=== PATIENT | male | born 1940 | race Caucasian/White ===

== ENCOUNTER 2025-08-11 11:16 | Inpatient (IN) | payer MEDICARE, OTHER, SELFPAY ==
[2025-08-11] VITALS (29 sets, daily range): BP systolic 105–214; BP diastolic 47–121; PULSE 57–98; RESP 15–24; TEMP 35–37.3; O2SAT 91–100; BMI 36.5
--- NOTE | ~2025-08-11 | XR_ITS ---
CLINICAL HISTORY: Stroke Protocol 1 view chest x-ray Comparison: None provided Findings: Borderline to mild cardiomegaly. Bilateral costophrenic recess pleural effusions. Small subsegmental right basilar atelectasis/infiltrate. Questionable pulmonary vascular congestion. No acute fracture. IMPRESSION: Borderline to mild cardiomegaly. Bilateral costophrenic recess pleural effusions. Small subsegmental right basilar atelectasis/infiltrate. Correlate clinically for pulmonary vascular congestion. This document has been electronically signed by: Sowmya Stout MD on 08/11/2025 13:01:28
--- NOTE | ~2025-08-11 | CT_ITS ---
CLINICAL HISTORY: Stroke Protocol CT head without contrast Comparison: None provided Findings: No intra-axial mass, midline shift, hydrocephalus, or acute hemorrhage. Dcfy-lf-[id number] age-related cerebral hemispheric white matter ischemic changes. Postsurgical right orbital and maxillary sinus changes. Likely old right zygomatic arch fracture. Correlate clinically for focal tenderness. Bilateral cataract surgery. IMPRESSION: 1. No acute intracranial findings. This document has been electronically signed by: Sowmya Stout MD on 08/11/2025 11:53:31
--- NOTE | ~2025-08-11 | XR_ITS ---
CLINICAL HISTORY: ET and OG tube check Chest Radiographs, AP Comparison: CR - XR CHEST 1V - 08/11/25 11:52 EDT Findings: The endotracheal tube terminates 5.2 cm above the karina. The orogastric tube terminates in the abdomen out of the field of view. Prominent sized heart. Normal mediastinal contours. No pneumothorax. Patchy central and basilar opacity. Small right and moderate-sized left pleural effusions. No acute findings in the upper abdomen. No acute fracture. Impression: Properly positioned endotracheal tube. The orogastric tube terminates in the abdomen out of the field of view. Kyct-kt-cjbbyswy pulmonary edema is favored. This document has been electronically signed by: Tahmina Salazar MD on 08/11/2025 18:29:24
--- NOTE | ~2025-08-11 | XR_ITS ---
CLINICAL HISTORY: fevers 1 view chest x-ray. Comparison: 08/11/2025 Findings: No consolidation or effusion. Cardiac and mediastinal contours appear stable. Bones unremarkable. Impression: 1. No acute pulmonary disease. This document has been electronically signed by: Blas Busch MD on 08/19/2025 14:41:49
--- NOTE | ~2025-08-11 | CT_ITS ---
CLINICAL HISTORY: Stroke Protocol CT angiography head and neck with contrast. 3D Postprocessing. Comparison: Same day head CT Findings: Focal short segmental, up to 71% stenosis of the distal most aspect of the left common carotid artery (at/just proximal to the bifurcation) due to calcified plaques. 82% stenosis of the right carotid bulb due to calcified plaques. Severely attenuated appearance of the left AICA may be congenital or due to age-indeterminate stenosis. Dominant left vertebral artery. Mild attenuated appearance of the right V4 after right PICA origin may be congenital or due to age-indeterminate stenosis. Clinical +/-MRI correlation recommended. Otherwise no evidence of significant arterial stenosis, aneurysm, AVM, or dissection. Patent dural venous sinuses. No abnormal intracranial enhancement. For rest of head findings please refer to same-day nonenhanced head CT report. Mqrv-kv-[id number] biapical pleural effusions. Partially evaluated enlarged right main pulmonary artery measuring up to 30 mm in width. Query pulmonary arterial hypertension. Absent versus atrophied left submandibular gland. Asymmetric fullness of the left floor of the mild (series 6 image 590; incidental or due to an underlying lesion) could be further evaluated with a nonemergent MRI. IMPRESSION: Focal short segmental, up to 71% stenosis of the distal most aspect of the left common carotid artery (at/just proximal to the bifurcation) due to calcified plaques. 82% stenosis of the right carotid bulb due to calcified plaques. Severely attenuated appearance of the left AICA may be congenital or due to age-indeterminate stenosis. Dominant left vertebral artery. Mild attenuated appearance of the right V4 after right PICA origin may be congenital or due to age-indeterminate stenosis. Clinical +/-MRI correlation recommended. Otherwise no evidence of significant arterial stenosis, aneurysm, AVM, or dissection. Mksl-yn-laclgiec biapical pleural effusions. Query pulmonary arterial hypertension. Asymmetric fullness of the left floor of the mild (incidental or due to an underlying lesion) could be further evaluated with a nonemergent MRI. This document has been electronically signed by: Sowmya Stout MD on 08/11/2025 12:35:09
--- NOTE | 2025-08-11 11:21 | ECG_ITS ---
Test Reason : STROKE Blood Pressure : */* mmHG Vent. Rate : 76 BPM Atrial Rate : * BPM P-R Int : * ms QRS Dur : 104 ms QT Int : 388 ms P-R-T Axes : * -12 5 degrees QTcB Int : 436 ms Atrial fibrillation with premature ventricular or aberrantly conducted complexes Abnormal ECG No previous ECGs available Referred By: Jodie Hannon Electronically Signed By: LIYAH TAN
[2025-08-11] MEDS: iohexoL 350 MG/ML 100 ML INFUS..BTL IV (11:35)
[2025-08-11 11:51] LABS: Glucose, Whole Blood 131 mg/dL (60-115)
[2025-08-11 11:53] LABS: Hematocrit 44.6 % (42.0-52.0); Hemoglobin 14.7 g/dl (14.0-18.0); Imm Gran Abs Auto 0.02 X10*3/uL (0.00-0.03); Imm Gran Pct Auto 0.3 % (0.0-0.4); Lymphocytes Absolute Auto 1.7 X10*3/uL (1.2-4.9); MANUAL DIFF FLAG NO; Mean Corpuscular HGB Conc 33.0 g/dl (31.0-36.0); Mean Corpuscular Hemoglobin 31.1 pg (27.0-33.0); Mean Corpuscular Volume 94.5 fL (80.0-98.0); NRBC Abs Auto 0.000 X10*3/uL (0.0-0.012); NRBC Pct Auto 0.0 /100WBC (0.0-0.2); Platelet Count 175 X10*3/uL (160-400); Red Blood Count 4.72 X10*6/uL (4.60-5.80); White Blood Count 7.7 X10*3/uL (4.8-10.8)
[2025-08-11 11:59] LABS: INTERNATIONAL NORM RATIO 2.3 (0.9-1.1); Prothrombin Time 25.9 SEC (10.9-12.4)
[2025-08-11 12:02] LABS: Partial Thromboplastin Time 34.3 SEC (26.7-34.1)
--- NOTE | 2025-08-11 12:03 | MHC.EDTECH ---
while giving first intial care. Rn interrupted patient care attempting speak with pt, she was asked if she was family she stated no. This tech requested for RN tiff to step out she was interrupting patient care. lead ADALI Resendez was made aware.
[2025-08-11 12:12] LABS: Anion Gap 13 (12-20); Blood Urea Nitrogen 8 mg/dL (9-16); Calcium 9.4 mg/dL (8.4-10.2); Carbon Dioxide 25 mmol/L (22-29); Chloride 105 mmol/L (96-108); Cholesterol 113 mg/dL (<200); Creatinine Clr Calc Pharmacy 74.5; Estimated Glomerular Filt Rate > 60; HDL Cholesterol 38 mg/dL (>40); Potassium 3.4 mmol/L (3.3-5.1); Sodium 140 mmol/L (135-145); Triglycerides 86 mg/dL (<150)
[2025-08-11 12:18] LABS: Troponin-I High Sensitivity 11.1 ng/L (<3.5-35.0)
--- OUTSIDE RECORDS SUMMARY | 2025-08-11 12:20 | XMS_ITS | Clinical Summary ---
Author Organization [facility] Address [address] [place] [phone] Phone Care Team Providers Care Storage Consultant Name Role Phone Blayne Gramajo MD Primary Care Provider [phone] Allergies No known active allergies Medications multivitamin-minera ls-lutein (CENTRUM SILVER) Tab Take 1 tablet by mouth daily. Active aspirin 81 MG EC tablet Take 81 mg by mouth daily. Active metoprolol succinate (TOPROL-XL) 100 MG 24 hr tablet Take 100 mg by mouth daily. Active rosuvastatin (CRESTOR) 10 MG tablet Take 10 mg by mouth daily. Active amLODIPine (NORVASC) 5 MG tablet Take 5 mg by mouth daily. 1 Active celecoxib (CELEBREX) 100 MG capsuleIndications: Primary osteoarthritis of right hip,Primary osteoarthritis of left hip,Lumbar spondylosis,Chronic bilateral low back pain without sciatica Take 1 capsule (100 mg total) by mouth 2 (two) times a day with meals. 60 capsule 1 1 Active Hospital, Clinic, or Other Facility Administered Medication Ordered Dose Route Frequency Start Date End Date Status sodium hyaluronate (EUFLEXXA) injection syringe 20 mgIndications:Chroni c pain of both knees 20 mg IAtc See admin instructions 09/27/2023 Active Active Problems Problem Noted Date Diagnosed Date HTN (hypertension) HLD (hyperlipidemia) Arrhythmia Social History Tobacco Use Types Packs/Day Years Used Date Smoking Tobacco: Former Cigarettes Q uit: 09/14/1987 Smokeless Tobacco: Never Alcohol Use Standard Drinks/Week Comments Yes 2 (1 standard drink = 0.6 oz pur e alcohol) day Education Answer Date Recorded Are you interested in more education? Not on nishi e 02/05/2023 Are you concerned about learning? Not on file 02/05/2023 No 02/05/2023 No 02/05/2023 Digital Access Answer Date Recorded No 03/06/2023 No 03/06/2023 Reliable internet access at home? Not on file 03/06/2023 Device with a working camera? Not on file Sex and Gender Information Value Date Recorded Sex Assigned at Not on file Legal Sex Male 10:53 AM EST Gender Identity Not on file Sexual Orientation Not on file Last Filed Vital Signs Vital Sign Reading Time Taken Comments Blood Pressure 155/91 09/14/2017 8:32 AM EST Pulse 87 09/14/2017 8:32 AM EST Temperature - - Respiratory Rate - - Oxygen Saturation - - Inhaled Oxygen Concentration - - Weight 117.5 kg (259 lb) 08/24/2023 11:15 AM EST Height 176 cm (5' 9.29 ) 08/24/2023 11:15 AM EST Body Mass Index 37.93 08/24/2023 11:15 AM EST Plan of Treatment Health Maintenance Due Date Last Done Comments BLOOD PRESSURE 1941 DEPRESSION SCREENING 1953 INFLUENZA VACCINE (#1) 2025 , 07/29/2022, 06/28/2021, Additional history exists COVID-19 VACCINE ( season) 2025 06/28/2023, 07/29/2022, 08/01/2021, Additional history exists Adult Td,Tdap Booster 08/30/2030 08/30/2020 ZOSTER VACCINES Completed 04/15/2018, 02/10/2018 PNEUMOCOCCAL VACCINES (50+ years) Completed 04/30/2023 RSV VACCINE Completed 06/08/2023 HEPATITIS A VACCINES Aged Out No long er eligible based on patient's age to complete this topic HIB VACCINES Aged Out No longer eligi ble based on patient's age to complete this topic MENINGOCOCCAL VACCINES (ACWY) Aged Out No longer eligible based on patient's age to complete this topic MENINGOCOCCAL VACCINES (B) Aged Out N o longer eligible based on patient's age to complete this topic Medical Devices Not on file Insurance MEDICARE PART A & B [facility] MEDICARE ENHANCE SUPPLEMENT MEDICARE PART A & B [facility] MEDICARE ENHANCE SUPPLEMENT [facility] Address: [address] [place] [id number] MEDICARE PART A & B MEDICARE ENHANCE SUPPLEMENT [facility] Address: [facility] [id number] [place] [id number] MEDICARE PART A [place] [address] [place] [address] MEDICARE ENHANCE SUPPLEMENT [facility] Address: [address] [place] [id number] MEDICARE PART A & B [facility] MEDICARE ENHANCE SUPPLEMENT [facility] Address: [address] [place] [id number] MEDICARE PART A & B [facility] MEDICARE ENHANCE SUPPLEMENT MEDICARE PART A & B [facility] MEDICARE ENHANCE SUPPLEMENT [facility] Address: [address] [place] [id number] MEDICARE PART A & [place] [address] [place] [address] MEDICARE ENHANCE SUPPLEMENT MEDICARE PART A & B [facility] MEDICARE ENHANCE SUPPLEMENT Care Teams Storage Consultant Relationship Specialty Start Date End Date Blayne Gramajo MD [address] [place] [id number] PCP - General Internal Medicine 09/06/17 Additional Source Comments The information contained in this document represents components of the legal health record. It is not the complete legal health record.[facility]
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
--- OUTSIDE RECORDS SUMMARY | 2025-08-11 12:20 | XMS_ITS | Clinical Summary ---
Author Organization [facility] Address [address] [place] [address] Care Team Providers Care Tank Terminal Gauger Name Role Phone Blayne Gramajo MD Primary Care Provider [phone] Allergies No known active allergies Medications Medication Sig Dispensed Refills Start Date End Date Status amLODIPine (NORVASC) tablet 5 mg 0 06/26/2021 Active aspirin 81 MG EC tablet Take 81 mg by mouth. 0 Active chlorthalidone (HYGROTON) 25 MG tablet 0 06/18/2021 Active metoprolol succinate (TOPROL-XL) 24 hr tablet 100 mg 0 04/23/2021 Active Multiple Vitamins-Minerals (Vitrum Senior) TABS Take 1 tablet by mouth. 0 Active rosuvastatin (CRESTOR) tablet 10 mg 0 04/06/2021 Active Active Problems Problem Noted Date Diagnosed Date Arrhythmia 06/27/2021 HLD (hyperlipidemia) 06/27/2021 HTN (hypertension) 11/14/2020 PVC (premature ventricular contraction) 11/14/19 21 Sustained SVT 11/14/2020 Social History Tobacco Use Types Packs/Day Years Used Date Smoking Tobacco: Every Day Cigarettes 1 Smokeless Tobacco: Never Alcohol Use Standard Drinks/Week Comments Not Asked 14 (1 standard drink = 0.6 oz pu re alcohol) Sex and Gender Information Value Date Recorded Sex Assigned at Not on file Gender Identity Not on file Sexual Orientation Not on file Job Start Date Occupation Industry Not on file Not on file Not on file Last Filed Vital Signs Vital Sign Reading Time Taken Comments Blood Pressure - - Pulse - - Temperature - - Respiratory Rate - - Oxygen Saturation - - Inhaled Oxygen Concentration - - Weight 113.4 kg (250 lb) 06/27/2021 10:26 AM EDT Height 180.3 cm (5' 11 ) 06/27/2021 10:26 AM EDT Body Mass Index 34.87 06/27/2021 10:26 AM EDT Plan of Treatment Health Maintenance Due Date Last Done Comments COVID-19 Vaccine (#1) 1941 Pneumococcal Vaccine (1 of 2 - PCV) 1947 Depression Screening 1953 BMI Counseling 1959 Preventative Health Evaluation 1959 Tobacco Cessation Counseling 1959 DTap / Tdap / Td (1 - Tdap) 02/02/1960 Shingrix-Zoster Vaccine (1 of 2) 1991 Fall Risk Assessment 2006 RSV Adult > 60+ Yrs or Pregn ant (1 - 1-dose 75+ series) 02/02/2016 Influenza Vaccine (#1) 2025 Hepatitis B Vaccines Aged Out No long er eligible based on patient's age to complete this topic RSV Ped < 20 months Aged Out No longe r eligible based on patient's age to complete this topic Care Teams Tank Terminal Gauger Relationship Specialty Start Date End Date Blayne Gramajo MD [address] [place] [id number] PCP - General Internal Medicine 06/19/21
[2025-08-11 12:23] LABS: Stroke Lab Use COMPLETE
--- NOTE | 2025-08-11 12:41 | ED.NEUROSD ---
HPI - Neuro Symptoms/Deficit General Chief Complaint: Stroke Stated Complaint: STROKE ALERT Time Seen by Provider: 08/11/25 11:20 Related Data Home Medications ?Medication ?Instructions ?Recorded ?Confirmed apixaban 5 mg tablet (Eliquis) 5 mg PO BID 08/11/25 08/11/25 furosemide 40 mg tablet 40 mg PO DAILY 08/11/25 08/11/25 losartan 50 mg tablet 50 mg PO DAILY 08/11/25 08/11/25 metoprolol succinate 100 mg 100 mg PO DAILY 08/11/25 08/11/25 tablet,extended release 24 hr rosuvastatin 40 mg tablet 40 mg PO QPM 08/11/25 08/11/25 Allergies Allergy/AdvReac Type Severity Reaction Status Date / Time No Known Allergies Allergy Verified 08/11/25 11:48 [facility] Social History Social History Advance Directives: No Advance Directives Information Provided: Yes Physical Exam Vital Signs: Vital Signs: Last Vital Signs Temp 99.1 F 08/11/25 12:16 Pulse 78 08/11/25 16:42 Resp 18 08/11/25 15:02 BP 157/89 H 08/11/25 16:42 Pulse Ox 97 08/11/25 16:42 O2 Del Method Oxymask 08/11/25 16:42 O2 Flow Rate 10 08/11/25 16:42 Oxygen Flow Rate 2 08/11/25 11:39 BMI result Body Mass Index 36.5 Medications Administered Generic Name Dose Route Start Last Admin Trade Name Freq PRN Reason Stop Dose Admin Propofol 1,000 mg in 100 mls @ 0 mls/hr 08/11/25 17:00 08/11/25 17:10 Diprivan IVCONT 30 mcg/kg/min .Q0M MARÍA 20.16 mls/hr Protocol Administration Per Protocol Discontinued Medications Generic Name Dose Route Start Last Admin Trade Name Freq PRN Reason Stop Dose Admin Etomidate 20 mg 08/11/25 17:02 08/11/25 16:55 Etomidate 20 Mg/10 Ml Vial IVPUSH 08/11/25 17:03 20 mg ONCE ONE Administration Levetiracetam 1,000 mg in 100 mls @ 400 mls/hr 08/11/25 14:49 08/11/25 15:07 Keppra IV 08/11/25 15:03 Infused ONCE ONE Infusion Iohexol 100 ml 08/11/25 11:35 08/11/25 11:35 Iohexol 350 Mg/Ml 100 Ml Infus..Btl IV 08/11/25 11:36 70 ml ONCE ONE Administration Labetalol HCl 10 mg 08/11/25 12:40 08/11/25 12:44 Labetalol Hcl 100 Mg/20 Ml Vial IVPUSH 08/11/25 12:41 10 mg ONCE ONE Administration Labetalol HCl 20 mg 08/11/25 13:17 08/11/25 13:20 Labetalol Hcl 100 Mg/20 Ml Vial IVPUSH 08/11/25 13:18 20 mg ONCE ONE Administration Labetalol HCl 20 mg 08/11/25 13:58 08/11/25 14:00 Labetalol Hcl 100 Mg/20 Ml Vial IVPUSH 08/11/25 13:59 20 mg ONCE ONE Administration Labetalol HCl 20 mg 08/11/25 14:49 08/11/25 15:08 Labetalol Hcl 100 Mg/20 Ml Vial IVPUSH 08/11/25 14:50 Not Given ONCE ONE Midazolam HCl 2 mg 08/11/25 15:13 08/11/25 14:37 Midazolam Hcl 2 Mg/2 Ml Vial IVPUSH 08/11/25 15:14 2 mg ONCE ONE Administration Phenobarbital Sodium 141 mg 08/11/25 15:00 08/11/25 15:14 Phenobarbital Sodium 130 Mg/Ml Im Once IM 08/11/25 15:01 141 mg ONCE ONE Administration Succinylcholine Chloride 100 mg 08/11/25 17:02 08/11/25 16:55 Succinylcholine Chloride 200 Mg/10 Ml Vial IVPUSH 08/11/25 17:03 100 mg ONCE ONE Administration Medical Decision Making Medical Decision Making MDM Narrative: Patient presented today with having altered mental status. NIH stroke scale was a 9. He is on Eliquis. Making him a poor candidate for TNK. Patient's CTA showed no large cerebral artery occlusion. Not a good candidate for occlusion retrieval patient condition question secondary to seizure question secondary to extreme hypertension. Blood pressure on arrival was 220/100. I gave multiple doses of labetalol with good results finally the blood pressure is 180/90. Discussed the case with Neurology. Agree with plan of close monitoring admission given the acute change in mental status. Currently in stable condition. His CT head by my interpretation was negative for intracranial bleed. I reviewed patient's CTA with the neurologist. We tried to get patient's blood pressure down with labetalol. However we will get it down in the blood pressure would come back up again. Finally it went back to check the patient again at approximately 02:30. I observed patient is having an active seizure. Having active twitching. Looking to the right side. With twitching movements. Immediately we give patient 2 mg of Versed. The seizure stopped. Patient had sleep apnea. O2 sat dropped a bit to the 70s. We placed the patient on high-flow O2. In addition I put a nasal trumpet in place. Oxygen came back up to 90s. Patient to be monitored carefully. I discussed with the family again if there is any history of seizure they said no. But patient has been to [employer] recently. And has been drinking some alcohol. Up to 4 servings of beer per day plus gin and tonic. Patient family states this amount is a little more than usual. Question if patient took even more than that. He did stop drinking once he reached [place]. Patient has stopped drinking about 48 hours prior. Can not exclude the possibility of alcohol withdrawal seizure. Will place patient on a phenobarb protocol any way. Will start patient on a dose of Keppra. Patient will be considered for the intensive care unit. After the seizure was controlled the blood pressure plummeted. The last blood pressure was actually 140/90. We will monitor the blood pressure very carefully. I would like is slightly higher blood pressure only like to drop the blood pressure about 20%. As we continue to monitor patient patient's mental status is still not improving. I did a repeat blood gas shows a pH of 7.23 with a pCO2 61 PaO2 116. This is consistent with acute respiratory acidosis. Considering patient is very lethargic I elected to intubate the patient. Procedure note for the intubation we used etomidate and succinylcholine. Preoxygenated patient to 100%. Pre position patient into a sniffing position. Subsequently a 7.5 ET tube was placed. I visualized the cords using the glide scope. There was no complications. ET tube was placed to the level of 23. We got an initial x-ray shows it is at the level of the clavicle. Will insert further by 2 in. Repeat x-ray looks good. 0 G-tube looks good. By also place the OG tube without any complications. It was proven to be in place by the x-ray. I contacted the telecommunications operator telling her that we intubated the patient. Placed him on a propofol and fentanyl drip. Patient is currently in critical condition. Being transferred to the intensive care unit. Differential Diagnosis Differential Diagnoses: The differential diagnosis associated with the presentation includes Admission/Observation Consideration of admission/observation: Escalation of care including admission/observation considered Consult Healthcare Provider Management of the patient was discussed with: Hospitalist and Associate Professor Of Counseling (Neurology) Lab Data MDM Lab Attestation statement: I reviewed the patient's lab results. 08/11/25 11:48 08/11/25 11:48 Labs: Lab Results 08/11/25 08/11/25 08/11/25 Range/Units 11:34 11:48 12:37 WBC 7.7 (4.8-10.8) X10*3/uL RBC 4.72 (4.60-5.80) X10*6/uL Hgb 14.7 (14.0-18.0) g/dl Hct 44.6 (42.0-52.0) % MCV 94.5 (80.0-98.0) fL MCH 31.1 (27.0-33.0) pg MCHC 33.0 (31.0-36.0) g/dl RDW 15.8 (11.0-16.0) % Plt Count 175 (160-400) X10*3/uL MPV 10.7 (9.4-12.4) fL Immature Gran % (Auto) 0.3 (0.0-0.4) % Neut % (Auto) 59.7 (45-73) % Lymph % (Auto) 22.2 (20-40) % Kimble % (Auto) 15.8 H (2-11) % Eos % (Auto) 1.4 (0-4) % Baso % (Auto) 0.6 (0-2) % Lymph # (Auto) 1.7 (1.2-4.9) X10*3/uL Kimble # (Auto) 1.2 (0.1-1.2) X10*3/uL Eos # (Auto) 0.1 (0.0-0.4) X10*3/uL Baso # (Auto) 0.1 (0.0-0.2) X10*3/uL Abs Immat Gran (auto) 0.02 (0.00-0.03) X10*3/uL Absolute Neuts (auto) 4.6 (2.0-8.3) x10*3/uL Absolute Nucleated RBC 0.000 (0.0-0.012) X10*3/uL Nucleated RBC % (auto) 0.0 (0.0-0.2) /100WBC PT 25.9 H (10.9-12.4) SEC INR 2.3 H (0.9-1.1) APTT 34.3 H (26.7-34.1) SEC Sodium 140 (135-145) mmol/L Potassium 3.4 (3.3-5.1) mmol/L Chloride 105 (96-108) mmol/L Carbon Dioxide 25 (22-29) mmol/L Anion Gap 13 (12-20) BUN 8 L (9-16) mg/dL Creatinine 0.91 (0.5-1.4) mg/dL Estim Creat Clear Calc 74.5 Estimated GFR > 60 POC Glucose 131 H (60-115) mg/dL Random Glucose 110 (60-115) mg/dL Calcium 9.4 (8.4-10.2) mg/dL Troponin I High Sens 11.1 (<3.5-35.0) ng/L Triglycerides 86 (<150) mg/dL Cholesterol 113 (<200) mg/dL LDL Cholesterol, Calc 58 (<100) mg/dL HDL Cholesterol 38 L (>40) mg/dL Urine Color Urine Appearance Urine pH (5.0-9.0) Ur Specific [place] (1.005-1.025) Urine Protein (Neg-Trace) mg/dL Urine Glucose (UA) (Negative) mg/dL Urine Ketones (Negative) mg/dL Urine Blood (Negative) Urine Nitrite (Negative) Ur Leukocyte Esterase (Negative) Urine RBC (0-2) /HPF Urine WBC (0-5) /HPF Ur Squamous Epith Cells (0-2) /HPF Urine Bacteria (None Seen) Hyaline Casts (0-2) /LPF Ethyl Alcohol < 10 mg/dL Influenza Type A (PCR) NEGATIVE (Negative) Influenza Type B (PCR) NEGATIVE (Negative) RSV RNA Qual (PCR) NEGATIVE (Negative) SARS-CoV-2 RNA (RT-PCR) NEGATIVE (Negative) 08/11/25 Range/Units 12:48 WBC (4.8-10.8) X10*3/uL RBC (4.60-5.80) X10*6/uL Hgb (14.0-18.0) g/dl Hct (42.0-52.0) % MCV (80.0-98.0) fL MCH (27.0-33.0) pg MCHC (31.0-36.0) g/dl RDW (11.0-16.0) % Plt Count (160-400) X10*3/uL MPV (9.4-12.4) fL Immature Gran % (Auto) (0.0-0.4) % Neut % (Auto) (45-73) % Lymph % (Auto) (20-40) % Kimble % (Auto) (2-11) % Eos % (Auto) (0-4) % Baso % (Auto) (0-2) % Lymph # (Auto) (1.2-4.9) X10*3/uL Kimble # (Auto) (0.1-1.2) X10*3/uL Eos # (Auto) (0.0-0.4) X10*3/uL Baso # (Auto) (0.0-0.2) X10*3/uL Abs Immat Gran (auto) (0.00-0.03) X10*3/uL Absolute Neuts (auto) (2.0-8.3) x10*3/uL Absolute Nucleated RBC (0.0-0.012) X10*3/uL Nucleated RBC % (auto) (0.0-0.2) /100WBC PT (10.9-12.4) SEC INR (0.9-1.1) APTT (26.7-34.1) SEC Sodium (135-145) mmol/L Potassium (3.3-5.1) mmol/L Chloride (96-108) mmol/L Carbon Dioxide (22-29) mmol/L Anion Gap (12-20) BUN (9-16) mg/dL Creatinine (0.5-1.4) mg/dL Estim Creat Clear Calc Estimated GFR POC Glucose (60-115) mg/dL Random Glucose (60-115) mg/dL Calcium (8.4-10.2) mg/dL Troponin I High Sens (<3.5-35.0) ng/L Triglycerides (<150) mg/dL Cholesterol (<200) mg/dL LDL Cholesterol, Calc (<100) mg/dL HDL Cholesterol (>40) mg/dL Urine Color Yellow Urine Appearance Clear Urine pH 5.5 (5.0-9.0) Ur Specific [place] 1.015 (1.005-1.025) Urine Protein Negative (Neg-Trace) mg/dL Urine Glucose (UA) Negative (Negative) mg/dL Urine Ketones Negative (Negative) mg/dL Urine Blood Negative (Negative) Urine Nitrite Negative (Negative) Ur Leukocyte Esterase Negative (Negative) Urine RBC 0-2 (0-2) /HPF Urine WBC 0-5 (0-5) /HPF Ur Squamous Epith Cells 0-2 (0-2) /HPF Urine Bacteria None Seen (None Seen) Hyaline Casts 0-2 (0-2) /LPF Ethyl Alcohol mg/dL Influenza Type A (PCR) (Negative) Influenza Type B (PCR) (Negative) RSV RNA Qual (PCR) (Negative) SARS-CoV-2 RNA (RT-PCR) (Negative) Independent Interpretation I performed an independent interpretation of an: EKG (Atrial fibrillation with bigeminy) and CT Scan (CT head negative for intracranial bleed) Radiology Impression Discussion of test interpretation with radiology: I have reviewed the radiologist's reading. Independent Historian Clinical information obtained from an independent historian. History obtained from or confirmed by: Spouse External Record Review External record reviewed: Inpatient record Chronic Conditions Patient?s care impacted by: Hypertension Social Determinants Patient?s care significantly limited by Social Determinants of Health including: Problems related to primary support group NIH Stroke Scale Internal: Initial- Upon Arrival Time: 12:41 Level of Consciousness: Alert Level of Consciousness Questions: Answers neither question correctly Level of Consciousness Commands: Performs neither task correctly Best Gaze: Normal Visual: No visual loss Facial Palsy: Normal Motor Arm (Right): No drift Motor Arm (Left): No drift Motor Leg (Right): No drift Motor Leg (Left): No drift Limb Ataxia: Absent Sensory: Normal Best Language: Mute, global aphasia Dysarthia: Severe dysarthria Extinction and Inattention: No abnormality Score: 9 Critical Care Time Critical Care Time Critical Care Time: Yes Total Critical Care Time: 90 Attestation: I have personally provided 90 minutes of critical care time exclusive of time spent on separately billable procedures. ?Time includes review of lab data, radiology results, discussion with consultants, and monitoring for potential decompensation. ?Interventions were performed as documented above Discharge Plan Discharge Clinical Impression: Hypertensive emergency, Seizure Patient Disposition: Admitted As Inpatient Interventions: Admission Worksheet (ED) Last Done: 08/11/25 16:20
[2025-08-11 13:08] LABS: Appearance Urine Clear; Glucose Urine UA Negative (Negative); PH 5.5 (5.0-9.0); Specific Gravity - Urine 1.015 (1.005-1.025)
[2025-08-11 13:30] LABS: Resp Syncy Virus RNA Qual PCR NEGATIVE (Negative); SARS COV2 PCR INHOUSE NEGATIVE (Negative)
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
[2025-08-11] MEDS: levETIRAcetam in NaCl (iso-os) 1,000 MG/100 ML PIGGYBACK 400 MG IV (14:53)
[2025-08-11] MEDS: PHENobarbitaL sodium 130 MG/ML IM ONCE 141 MG IM (15:14)
--- NOTE | 2025-08-11 15:42 | P.HPCC_ITS ---
History of Present Illness Date of Service: 08/11/25 Attending physician on admission: Shayna Mendoza Chief Complaint: Encephalopathy Patient is a 85 Y M w/ hypertension, atrial fibrillation on apixaban, and alcohol misuse, presenting to ED on 08/11 w/ encephalopathy, upper extremity weakness, initially made code stroke, though CT H and CTA H/N not suggestive of intracranial pathology; in ED, patient w/ witnessed seizure, given midazolam, though subsequently encephalopathic, likely d/t post-ictal state and benzodiazapine, necessitating intubation Review of Systems 2 Review of Systems: Yes unobtainable due to endotracheal tube, Unobtainable due to mental condition and Unobtainable due to mental status PMFSH Social History Social History Household Members: Significant Other and Family Household Members Other:: Alone Housing: House Do you presently have visiting nurse or other home services: No Patient Tobacco Use Status: Former Tobacco user Currently Displaying Signs/Symptoms of Drug Intoxication Withdrawal: No Taoism Healthcare Practices: [facility] Advance Directives: No Advance Directives Information Provided: Yes Advance Directives on File: Yes Recently lost weight without trying: No Nutrition Risks: No Nutritional Risk Poor oral hygiene: No Meds Allergies Allergy/AdvReac Type Severity Reaction Status Date / Time No Known Allergies Allergy Verified 08/11/25 11:48 Active Medications: Current Medications Pharmacy Consult (Consult Rx Etoh Phenob Im/Po) 1 each MISCELLANE ONCE PRN; Protocol PRN Reason: Consult order Phenobarbital (Phenobarbital 15 Mg Tablet) 45 mg PO BID [facility] Stop: 08/13/25 21:01 Phenobarbital (Phenobarbital 30 Mg Tablet) 30 mg PO BID [facility] Stop: 08/15/25 21:01 Phenobarbital (Phenobarbital 15 Mg Tablet) 15 mg PO DAILY [facility] Stop: 08/18/25 09:01 Phenobarbital Sodium (Phenobarbital Sodium 130 Mg/Ml Vial Im Q3hx2) 106 mg IM Q3H [facility] Stop: 08/11/25 22:01 Home Medications ?Medication ?Instructions ?Recorded ?Confirmed ?Last Taken ?Type apixaban 5 mg tablet (Eliquis) 5 mg PO BID 08/11/2508/11/25 History furosemide 40 mg tablet 40 mg PO DAILY 08/11/2511/0408/11/25 History losartan 50 mg tablet 50 mg PO DAILY 08/11/2511/0408/11/25 History metoprolol succinate 100 mg 100 mg PO DAILY 08/11/25 1 10/11/24 08/11/25 History tablet,extended release 24 hr rosuvastatin 40 mg tablet 40 mg PO QPM 08/11/2508/10/25 History Physical Exam 2 Vital Signs: Vital Signs: Last Vital Signs Temp 99.1 F 08/11/25 12:16 Pulse 76 08/11/25 15:19 Resp 18 08/11/25 15:02 BP 144/76 H 08/11/25 15:19 Pulse Ox 92 08/11/25 15:19 O2 Del Method Oxymask 08/11/25 15:19 O2 Flow Rate 10 08/11/25 15:19 Oxygen Flow Rate 2 08/11/25 11:39 BMI result Body Mass Index 36.5 Const: Other: intubated, sedated General: comfortable, no acute distress and well developed HEENT: Head: Yes normal to inspection, Yes normocephalic and Yes atraumatic Eyes: General: appearance normal, both eyes and all related structures Neck: Neck: Yes normal visual inspection, Yes full ROM, Yes no meningeal signs, Yes trachea midline and Yes supple Chest: Chest palpation & inspection: normal inspection of the chest Resp: Other: no appreciable overt rales, rhonchi, wheezing Effort & Inspection: normal respiratory effort Cardio: Rate: bradycardic Rhythm: abnormal rhythm GI: Inspection: Yes normal to inspection, No Abdominal wall edema and No distended Palpation (GI): Soft to palpation, not firm, nontender, no guarding and not rigid Skin: General skin exam: no rashes or lesions noted Neuro: General: tone normal, moves all extremities and no meningeal signs Extrem: Other: appreciable trace pitting edema to bilateral shins General: Yes normal to inspection, Yes full ROM and Yes capillary refill normal Psych: Other: unable to assess Results Labs 08/12/25 04:23 08/12/25 04:23 Labs: Laboratory Results - last 24 hr 08/11/25 08/11/25 08/11/25 11:34 11:48 12:37 MCV 94.5 MCH 31.1 MCHC 33.0 RDW 15.8 Plt Count 175 MPV 10.7 Immature Gran % (Auto) 0.3 Neut % (Auto) 59.7 Lymph % (Auto) 22.2 [place] % (Auto) 15.8 H Eos % (Auto) 1.4 Baso % (Auto) 0.6 Lymph # (Auto) 1.7 [place] # (Auto) 1.2 Eos # (Auto) 0.1 Baso # (Auto) 0.1 Abs Immat Gran (auto) 0.02 Absolute Neuts (auto) 4.6 Absolute Nucleated RBC 0.000 Nucleated RBC % (auto) 0.0 PT 25.9 H INR 2.3 H APTT 34.3 H Anion Gap 13 Estim Creat Clear Calc 74.5 Estimated GFR > 60 POC Glucose 131 H Random Glucose 110 Calcium 9.4 Troponin I High Sens 11.1 Triglycerides 86 Cholesterol 113 LDL Cholesterol, Calc 58 HDL Cholesterol 38 L Urine Color Urine Appearance Urine pH Ur Specific [place] Urine Protein Urine Glucose (UA) Urine Ketones Urine Blood Urine Nitrite Ur Leukocyte Esterase Urine RBC Urine WBC Ur Squamous Epith Cells Urine Bacteria Hyaline Casts Ethyl Alcohol < 10 Influenza Type A (PCR) NEGATIVE Influenza Type B (PCR) NEGATIVE RSV RNA Qual (PCR) NEGATIVE SARS-CoV-2 RNA (RT-PCR) NEGATIVE 08/11/25 12:48 MCV MCH MCHC RDW Plt Count MPV Immature Gran % (Auto) Neut % (Auto) Lymph % (Auto) [place] % (Auto) Eos % (Auto) Baso % (Auto) Lymph # (Auto) [place] # (Auto) Eos # (Auto) Baso # (Auto) Abs Immat Gran (auto) Absolute Neuts (auto) Absolute Nucleated RBC Nucleated RBC % (auto) PT INR APTT Anion Gap Estim Creat Clear Calc Estimated GFR POC Glucose Random Glucose Calcium Troponin I High Sens Triglycerides Cholesterol LDL Cholesterol, Calc HDL Cholesterol Urine Color Yellow Urine Appearance Clear Urine pH 5.5 Ur Specific [place] 1.015 Urine Protein Negative Urine Glucose (UA) Negative Urine Ketones Negative Urine Blood Negative Urine Nitrite Negative Ur Leukocyte Esterase Negative Urine RBC 0-2 Urine WBC 0-5 Ur Squamous Epith Cells 0-2 Urine Bacteria None Seen Hyaline Casts 0-2 Ethyl Alcohol Influenza Type A (PCR) Influenza Type B (PCR) RSV RNA Qual (PCR) SARS-CoV-2 RNA (RT-PCR) Assessment and Plan (1) Seizure: Status: Acute (2) Acute respiratory failure: Qualifiers: Respiratory failure complication: hypoxia and hypercapnia Qualified Code(s): J96.01 - Acute respiratory failure with hypoxia; J96.02 - Acute respiratory failure with hypercapnia; J96.02 - Acute respiratory failure with hypercapnia Status: Acute Plan Patient is a 85 Y M w/ atrial fibrillation on apixaban presenting to ED on 08/11 w/ encephalopathy, thought to be d/t alcohol withdrawal seizure N: intubated, sedated w/ propofol, fentanyl gtts, wean as tolerated; alcohol withdrawal seizure, seizure precautions CV: hypertension to SBP > 200s in ED, anti-hypertensives as needed; atrial fibrillation R: acute respiratory failure in setting of post-ictal state, intubated 08/12 GI: NPO : no acute issues H: atrial fibrillation, home apixaban ID: no overt stigmata of infection, to closely monitor E: to monitor hypo-/hyper-glycemia P: no acute issues S: c/f alcohol withdrawal seizure, CIWA protocol
--- NOTE | 2025-08-11 16:02 | PHA.MEDREC ---
Pharmacy Consult ? Medication Reconciliation Pharmacy has reviewed the medication reconciliation done by RN.
[2025-08-11 16:25] LABS: ABG HCO3 26 mmol/L (22-26); ABG O2 % Saturation 98.0 %
[2025-08-11] MEDS: Etomidate 20 MG/10 ML VIAL IVPUSH (16:55)
[2025-08-11] MEDS: fentaNYL citrate/NS 1,000 MCG/100 ML PLAST..BAG 2.5 MCG IVCONT (17:40)
[2025-08-11 17:56] LABS: Venous Blood Gas Refer to POC result
[2025-08-11 17:57] LABS: VBG HCO3 27 mmol/L (22-26); VBG O2 % Saturation 66.0 %
[2025-08-11] MEDS: PHENobarbitaL sodium 130 MG/ML VIAL IM Q3Hx2 106 MG IM ×2 (19:03→22:18)
--- NOTE | 2025-08-11 19:27 | HE.ICUCC ---
ICU Critical Care Nursing Note ICU Day #:1 Vent Day #:1 Neuro: Patient arrived to unit via stretcher from ED, sedated and intubated on Fent and Propofol, See MAR for full details. Cardiac: Slow Afib noted, Occ PVC's, Blake down to 48. Resp: Vented on ACVC, see vent assessment GI/: OG tube clamped, Purewick in place no urine noted, incontinent of stool Integumentary/ Musculoskeletal: small gluteal crease tear noted, see Skin note Psychosocial (family etc.): Family at bedside
--- NOTE | 2025-08-11 19:39 | HO.SKINPHOTO ---
Location: Gluteal Crease Tear Category: Stage: Length: Width: Depth: cm
[2025-08-11] MEDS: Chlorhexidine Gluc Oral Rinse 15 ML MOUTHWASH BUCCAL (22:18)
[2025-08-12] VITALS (37 sets, daily range): BP systolic 87–179; BP diastolic 36–84; PULSE 51–124; RESP 18–23; TEMP 34.3–37.1; O2SAT 93–99; BMI 32.5
--- NOTE | 2025-08-12 | ECG_ITS ---
Test Reason : Bradycardia Blood Pressure : */* mmHG Vent. Rate : 54 BPM Atrial Rate : * BPM P-R Int : * ms QRS Dur : 102 ms QT Int : 486 ms P-R-T Axes : * -12 -25 degrees QTcB Int : 460 ms Atrial fibrillation with slow ventricular response T wave abnormality, consider anterior ischemia Prolonged QT Abnormal ECG When compared with ECG of 11-Aug-2025 12:23, T wave inversion now evident in Anterior leads Referred By: Shayna Mendoza Electronically Signed By: Jayson Bello
--- NOTE | 2025-08-12 02:57 | PC.NURSE ---
Upon initial assessment at 1900 ? pt sedated on propofol and fentanyl infusions; RASS -3 to -4. Afebrile. Afib with PVCs on tele; HR 50?60s. SBP >90, MAP >65. +1 to +2 BLE edema. ETT #7.5 secured at 23 cm at lip, on VCV. FiO2 titrated down as tolerated. OGT clamped. No BM. External urinary catheter in place; UOP as charted. Skin overall intact. Repositioned in bed q2hrs with pillows/wedges; on IsoTour mattress. Family at bedside and updated on plan of care and pt status. See EMR/flowsheet for further details.
[2025-08-12 04:34] LABS: VBG HCO3 23 mmol/L (22-26); VBG O2 % Saturation 85.0 %
[2025-08-12 04:46] LABS: MANUAL DIFF FLAG NO
[2025-08-12 04:58] LABS: Albumin Level 3.4 g/dL (3.5-5.0); Hematocrit 40.2 % (42.0-52.0); Hemoglobin 13.3 g/dl (14.0-18.0); Imm Gran Abs Auto 0.02 X10*3/uL (0.00-0.03); Imm Gran Pct Auto 0.2 % (0.0-0.4); Lymphocytes Absolute Auto 1.4 X10*3/uL (1.2-4.9); Mean Corpuscular HGB Conc 33.1 g/dl (31.0-36.0); Mean Corpuscular Hemoglobin 31.4 pg (27.0-33.0); Mean Corpuscular Volume 95.0 fL (80.0-98.0); NRBC Abs Auto 0.000 X10*3/uL (0.0-0.012); NRBC Pct Auto 0.0 /100WBC (0.0-0.2); Platelet Count 180 X10*3/uL (160-400); Red Blood Count 4.23 X10*6/uL (4.60-5.80); White Blood Count 8.4 X10*3/uL (4.8-10.8)
[2025-08-12 05:11] LABS: Anion Gap 18 (12-20); Blood Urea Nitrogen 11 mg/dL (9-16); Calcium 8.9 mg/dL (8.4-10.2); Carbon Dioxide 21 mmol/L (22-29); Chloride 106 mmol/L (96-108); Creatinine Clr Calc Pharmacy 62.7; Estimated Glomerular Filt Rate > 60; Magnesium 1.9 mg/dL (1.6-2.6); Potassium 3.5 mmol/L (3.3-5.1); Sodium 141 mmol/L (135-145)
[2025-08-12] MEDS: fentaNYL citrate/NS 1,000 MCG/100 ML PLAST..BAG 5 MCG IVCONT ×2 (05:54→20:01)
[2025-08-12 06:48] LABS: Venous Blood Gas Refer to POC result
[2025-08-12] MEDS: Albumin Human 25 % 50 ML 100 ML IV (07:57)
[2025-08-12] MEDS: 0.9 % Sodium Chloride Flush 3 ML SYRINGE IVFLUSH ×2 (07:58→16:23)
[2025-08-12] MEDS: Potassium Chloride Packet 20 MEQ PACKET PO (07:59)
[2025-08-12] MEDS: Chlorhexidine Gluc Oral Rinse 15 ML MOUTHWASH BUCCAL ×3 (08:00→21:25)
--- NOTE | 2025-08-12 08:38 | P.PNCC_ITS ---
Subjective Subjective Date of Service: 08/12/25 Interval History: no significant overnight events Critical Care Time (minutes): 60 Physical Exam 2 Vital Signs: Vital Signs: Last Vital Signs Temp 98.2 F 08/12/25 04:00 Pulse 69 08/12/25 07:00 Resp 18 08/12/25 07:00 BP 102/49 L 08/12/25 07:00 Pulse Ox 98 08/12/25 08:00 O2 Del Method Mechanical Ventil ation 08/12/25 07:00 O2 Flow Rate 10 08/11/25 16:42 FiO2 40 08/12/25 08:00 Oxygen Flow Rate 2 08/11/25 11:39 BMI result Body Mass Index 32.5 Const: Other: intubated, sedated General: comfortable, no acute distress and well developed HEENT: Head: Yes normal to inspection, Yes normocephalic and Yes atraumatic Eyes: General: appearance normal, both eyes and all related structures Neck: Neck: Yes normal visual inspection, Yes full ROM, Yes no meningeal signs, Yes trachea midline and Yes supple Chest: Chest palpation & inspection: normal inspection of the chest Resp: Other: no appreciable overt rales, rhonchi, wheezing Effort & Inspection: normal respiratory effort Cardio: Rate: bradycardic Rhythm: abnormal rhythm GI: Inspection: Yes normal to inspection, No Abdominal wall edema and No distended Palpation (GI): Soft to palpation, not firm, nontender, no guarding and not rigid Skin: General skin exam: no rashes or lesions noted Neuro: General: tone normal, moves all extremities and no meningeal signs Extrem: Other: appreciable trace pittign edema to bilateral shins General: Yes normal to inspection, Yes full ROM and Yes capillary refill normal Psych: Other: unable to assess Objective Data Labs 08/12/25 04:23 08/12/25 04:23 Labs: Laboratory Results - last 24 hr 08/11/25 08/11/25 08/11/25 11:34 11:48 12:37 WBC 7.7 RBC 4.72 Hgb 14.7 Hct 44.6 MCV 94.5 MCH 31.1 MCHC 33.0 RDW 15.8 Plt Count 175 MPV 10.7 Immature Gran % (Auto) 0.3 Neut % (Auto) 59.7 Lymph % (Auto) 22.2 [place] % (Auto) 15.8 H Eos % (Auto) 1.4 Baso % (Auto) 0.6 Lymph # (Auto) 1.7 [place] # (Auto) 1.2 Eos # (Auto) 0.1 Baso # (Auto) 0.1 Abs Immat Gran (auto) 0.02 Absolute Neuts (auto) 4.6 Absolute Nucleated RBC 0.000 Nucleated RBC % (auto) 0.0 PT 25.9 H INR 2.3 H APTT 34.3 H O2 Saturation ABG pH at Pt Temp ABG pCO2 at Pt Temp ABG pO2 at Pt Temp ABG HCO3 ABG Base Excess (Actual) VBG pH VBG pCO2 VBG pO2 VBG HCO3 VBG O2 Saturation VBG Base Excess Sodium 140 Potassium 3.4 Chloride 105 Carbon Dioxide 25 Anion Gap 13 BUN 8 L Creatinine 0.91 Estim Creat Clear Calc 74.5 Estimated GFR > 60 POC Glucose 131 H Random Glucose 110 Calcium 9.4 Phosphorus Magnesium Troponin I High Sens 11.1 Albumin Triglycerides 86 Cholesterol 113 LDL Cholesterol, Calc 58 HDL Cholesterol 38 L Urine Color Urine Appearance Urine pH Ur Specific [place] Urine Protein Urine Glucose (UA) Urine Ketones Urine Blood Urine Nitrite Ur Leukocyte Esterase Urine RBC Urine WBC Ur Squamous Epith Cells Urine Bacteria Hyaline Casts Ethyl Alcohol < 10 Influenza Type A (PCR) NEGATIVE Influenza Type B (PCR) NEGATIVE RSV RNA Qual (PCR) NEGATIVE SARS-CoV-2 RNA (RT-PCR) NEGATIVE 08/11/25 08/11/25 08/11/25 12:48 16:21 17:53 WBC RBC Hgb Hct MCV MCH MCHC RDW Plt Count MPV Immature Gran % (Auto) Neut % (Auto) Lymph % (Auto) [place] % (Auto) Eos % (Auto) Baso % (Auto) Lymph # (Auto) [place] # (Auto) Eos # (Auto) Baso # (Auto) Abs Immat Gran (auto) Absolute Neuts (auto) Absolute Nucleated RBC Nucleated RBC % (auto) PT INR APTT O2 Saturation 98.0 ABG pH at Pt Temp 7.24 L ABG pCO2 at Pt Temp 61 H* ABG pO2 at Pt Temp 116 H ABG HCO3 26 ABG Base Excess (Actual) -2.3 VBG pH 7.24 L VBG pCO2 61 VBG pO2 51 VBG HCO3 27 H VBG O2 Saturation 66.0 VBG Base Excess -1.6 Sodium Potassium Chloride Carbon Dioxide Anion Gap BUN Creatinine Estim Creat Clear Calc Estimated GFR POC Glucose Random Glucose Calcium Phosphorus Magnesium Troponin I High Sens Albumin Triglycerides Cholesterol LDL Cholesterol, Calc HDL Cholesterol Urine Color Yellow Urine Appearance Clear Urine pH 5.5 Ur Specific [place] 1.015 Urine Protein Negative Urine Glucose (UA) Negative Urine Ketones Negative Urine Blood Negative Urine Nitrite Negative Ur Leukocyte Esterase Negative Urine RBC 0-2 Urine WBC 0-5 Ur Squamous Epith Cells 0-2 Urine Bacteria None Seen Hyaline Casts 0-2 Ethyl Alcohol Influenza Type A (PCR) Influenza Type B (PCR) RSV RNA Qual (PCR) SARS-CoV-2 RNA (RT-PCR) 08/12/25 08/12/25 04:23 04:30 WBC 8.4 RBC 4.23 L Hgb 13.3 L Hct 40.2 L MCV 95.0 MCH 31.4 MCHC 33.1 RDW 15.9 Plt Count 180 MPV 11.1 Immature Gran % (Auto) 0.2 Neut % (Auto) 66.8 Lymph % (Auto) 17.1 L [place] % (Auto) 15.5 H Eos % (Auto) 0.2 Baso % (Auto) 0.2 Lymph # (Auto) 1.4 [place] # (Auto) 1.3 H Eos # (Auto) 0.0 Baso # (Auto) 0.0 Abs Immat Gran (auto) 0.02 Absolute Neuts (auto) 5.6 Absolute Nucleated RBC 0.000 Nucleated RBC % (auto) 0.0 PT INR APTT O2 Saturation ABG pH at Pt Temp ABG pCO2 at Pt Temp ABG pO2 at Pt Temp ABG HCO3 ABG Base Excess (Actual) VBG pH 7.52 H VBG pCO2 28 VBG pO2 55 VBG HCO3 23 VBG O2 Saturation 85.0 VBG Base Excess 2.0 Sodium 141 Potassium 3.5 Chloride 106 Carbon Dioxide 21 L Anion Gap 18 BUN 11 Creatinine 1.02 Estim Creat Clear Calc 62.7 Estimated GFR > 60 POC Glucose Random Glucose 91 Calcium 8.9 Phosphorus 4.1 Magnesium 1.9 Troponin I High Sens Albumin 3.4 L Triglycerides Cholesterol LDL Cholesterol, Calc HDL Cholesterol Urine Color Urine Appearance Urine pH Ur Specific [place] Urine Protein Urine Glucose (UA) Urine Ketones Urine Blood Urine Nitrite Ur Leukocyte Esterase Urine RBC Urine WBC Ur Squamous Epith Cells Urine Bacteria Hyaline Casts Ethyl Alcohol Influenza Type A (PCR) Influenza Type B (PCR) RSV RNA Qual (PCR) SARS-CoV-2 RNA (RT-PCR) Progress Note: A&P Assessment and plan (1) Acute respiratory failure: Status: Acute (2) Seizure: Status: Acute Plan Patient is a 85 Y M w/ atrial fibrillation on apixaban presenting to ED on 08/11 w/ encephalopathy, thought to be d/t alcohol withdrawal seizure N: intubated, sedated w/ propofol, fentanyl gtts, wean as tolerated; alcohol withdrawal seizure, seizure precautions CV: hypotension, likely d/t sedation, norepinephrine gtt as needed; atrial fibrillation, on home apixaban R: acute respiratory failure in setting of post-ictal state, intubated 08/12, wean as tolerated GI: NPO : no acute issues H: atrial fibrillation, home apixaban ID: no overt stigmata of infection, to closely monitor E: to monitor hypo-/hyper-glycemia P: no acute issues S: c/f alcohol withdrawal seizure, CIWA protocol Quality Stroke Does the patient have a stroke diagnosis?: No VTE Prior VTE?: No VTE Risk Level:: Medical - moderate - high VTE Device Contraindication: N/A - Device Ordered VTE Drug Contraindication: N/A - Med Ordered
--- NOTE | 2025-08-12 12:59 | MHC.CM.PN ---
Attempted to meet with patient in regards to discharge planning. Patient is currently intubated/vented. Patient's son, Hans, is currently at bedside. Patient lives alone, ambulates with a cane and had no services prior to coming to the hospital. PCP verified. Copy of HCP obtained from [facility]. IMM explained and signed. Hans states patient was never been to short term rehab. Hans aware physical therapy eval for home safety may be necessary when patient is medically stable. Continue to monitor for d/c needs.
[2025-08-12 17:51] LABS: Anion Gap 13 (12-20); Blood Urea Nitrogen 11 mg/dL (9-16); Calcium 8.8 mg/dL (8.4-10.2); Carbon Dioxide 25 mmol/L (22-29); Chloride 107 mmol/L (96-108); Creatinine Clr Calc Pharmacy 59.2; Estimated Glomerular Filt Rate > 60; Magnesium 1.9 mg/dL (1.6-2.6); Potassium 3.3 mmol/L (3.3-5.1); Sodium 142 mmol/L (135-145)
--- NOTE | 2025-08-12 19:16 | PC.NURSE ---
Patient continue to be sedated and Vented, please See MAR and Vent assessment for full details, briefly on Levophed currently off, no urine noted and Bladder Scan completed, 838mls noted straight cath for 850mls, at 1400. 1745 bladder scanned 238ml noted. patient noted to Blake down to 38, made aware, labs drawn and EKG completed as ordered.
[2025-08-13] VITALS (32 sets, daily range): BP systolic 114–182; BP diastolic 53–114; PULSE 47–106; RESP 14–25; TEMP 35.1–37.1; O2SAT 94–99; BMI 32.5
[2025-08-13] MEDS: 0.9 % Sodium Chloride Flush 3 ML SYRINGE IVFLUSH ×3 (00:03→15:09)
[2025-08-13 05:00] LABS: VBG HCO3 24 mmol/L (22-26); VBG O2 % Saturation 65.0 %
[2025-08-13 05:01] LABS: Venous Blood Gas Refer to POC result
[2025-08-13 05:10] LABS: MANUAL DIFF FLAG NO
[2025-08-13 05:15] LABS: Hematocrit 42.4 % (42.0-52.0); Hemoglobin 14.1 g/dl (14.0-18.0); Imm Gran Abs Auto 0.01 X10*3/uL (0.00-0.03); Imm Gran Pct Auto 0.1 % (0.0-0.4); Lymphocytes Absolute Auto 1.7 X10*3/uL (1.2-4.9); Mean Corpuscular HGB Conc 33.3 g/dl (31.0-36.0); Mean Corpuscular Hemoglobin 31.5 pg (27.0-33.0); Mean Corpuscular Volume 94.9 fL (80.0-98.0); NRBC Abs Auto 0.000 X10*3/uL (0.0-0.012); NRBC Pct Auto 0.0 /100WBC (0.0-0.2); Platelet Count 126 X10*3/uL (160-400); Red Blood Count 4.47 X10*6/uL (4.60-5.80); White Blood Count 7.7 X10*3/uL (4.8-10.8)
[2025-08-13 05:28] LABS: Albumin Level 3.4 g/dL (3.5-5.0); Anion Gap 14 (12-20); Blood Urea Nitrogen 11 mg/dL (9-16); Calcium 8.8 mg/dL (8.4-10.2); Carbon Dioxide 24 mmol/L (22-29); Chloride 106 mmol/L (96-108); Creatinine Clr Calc Pharmacy 68.0; Estimated Glomerular Filt Rate > 60; Magnesium 2.0 mg/dL (1.6-2.6); Potassium 3.2 mmol/L (3.3-5.1); Sodium 141 mmol/L (135-145)
[2025-08-13] MEDS: Potassium Chloride/H20 10 MEQ/100 ML PIGGYBACK 100 MEQ IV ×4 (07:19→10:30)
[2025-08-13] MEDS: Chlorhexidine Gluc Oral Rinse 15 ML MOUTHWASH BUCCAL ×2 (09:28→15:10)
[2025-08-13] MEDS: dexmedeTOMIDine HCL/NS 400 MCG/100 ML PLAST..BAG 12.46 MCG IVCONT (10:03)
--- NOTE | 2025-08-13 11:11 | P.PNCC_ITS ---
Subjective Subjective Date of Service: 08/13/25 Interval History: 85-year-old gentleman with underlying AFib on Eliquis and alcohol abuse admitted on 08/11/2025 with alcohol withdrawal seizures requiring intubation and ventilatory support. No events overnight. Critical Care Time (minutes): 60 Physical Exam 2 Vital Signs: Vital Signs: Last Vital Signs Temp 98.1 F 08/13/25 08:00 Pulse 64 08/13/25 11:00 Resp 15 08/13/25 11:00 BP 141/99 H 08/13/25 11:00 Pulse Ox 97 08/13/25 11:00 O2 Del Method Mechanical Ventil ation 08/13/25 11:00 O2 Flow Rate 10 08/11/25 16:42 FiO2 30 08/13/25 11:03 Oxygen Flow Rate 2 08/11/25 11:39 BMI result Body Mass Index 32.5 Const: General: no acute distress and other (Sedated on ventilatory support) Eyes: Sclerae: sclerae normal EOM: EOMs intact bilaterally Neck: Neck: Yes no lymphadenopathy, Yes trachea midline and Yes supple Resp: Auscultation: clear to auscultation bilaterally Cardio: Rate: regular rate Rhythm: regular rhythm Heart sounds: no gallops, no murmurs and no rubs GI: Palpation (GI): Soft to palpation and Other GI palpation findings present ( Nontender) Auscultation: normal bowel sounds Extrem: General: Yes no pedal edema, No clubbing and No cyanosis Objective Data Labs 08/13/25 04:54 08/13/25 04:54 Labs: Laboratory Results - last 24 hr 08/12/25 08/13/25 08/13/25 17:24 04:54 04:56 WBC 7.7 RBC 4.47 L Hgb 14.1 Hct 42.4 MCV 94.9 MCH 31.5 MCHC 33.3 RDW 16.0 Plt Count 126 L D MPV 10.9 Immature Gran % (Auto) 0.1 Neut % (Auto) 56.1 Lymph % (Auto) 22.2 [place] % (Auto) 19.0 H Eos % (Auto) 2.1 Baso % (Auto) 0.5 Lymph # (Auto) 1.7 [place] # (Auto) 1.5 H Eos # (Auto) 0.2 Baso # (Auto) 0.0 Abs Immat Gran (auto) 0.01 Absolute Neuts (auto) 4.3 Absolute Nucleated RBC 0.000 Nucleated RBC % (auto) 0.0 VBG pH 7.51 H VBG pCO2 30 VBG pO2 45 VBG HCO3 24 VBG O2 Saturation 65.0 VBG Base Excess 2.6 Sodium 142 141 Potassium 3.3 3.2 L Chloride 107 106 Carbon Dioxide 25 24 Anion Gap 13 14 BUN 11 11 Creatinine 1.08 0.94 Estim Creat Clear Calc 59.2 68.0 Estimated GFR > 60 > 60 Random Glucose 94 77 Calcium 8.8 8.8 Phosphorus 3.0 3.0 Magnesium 1.9 2.0 Albumin 3.4 L Progress Note: A&P Assessment and plan (1) Alcohol withdrawal: Status: Acute (2) Seizure: Status: Acute (3) Afib: Status: Acute Plan Assessment: 85-year-old gentleman admitted with alcohol withdrawal seizure requiring intubation and ventilatory support. Plan: Neuro: Alcohol withdrawal, continue to titrate off sedatives as tolerated. Cardiac: No acute issues. Pulmonary: Acute hypoxic respiratory failure on a background of alcohol withdrawal seizure requiring ventilatory support, continue to titrate off as tolerated. Renal: No acute issues. Endo: No acute issues. GI: No acute issues. ID: No acute issues Heme/Onc: No acute issues. Psych: No acute issues. Miscellaneous: No acute issues. Prophylaxis: Apixaban, PPI Diet: NPO Critical care time spent: 60 minutes Quality Stroke Does the patient have a stroke diagnosis?: No VTE Prior VTE?: No VTE Risk Level:: Medical - moderate - high VTE Device Contraindication: N/A - Device Ordered VTE Drug Contraindication: N/A - Med Ordered
--- NOTE | 2025-08-13 14:22 | MHC.CM.PN ---
Pt from home now intubated in ICU: No extubation planned for today: CM to follow for finalization of d/c planning needs.
[2025-08-13 17:02] LABS: ABG HCO3 24 mmol/L (22-26); ABG O2 % Saturation 99.0 %
[2025-08-13] MEDS: PHENobarbitaL sodium 130 MG/ML IM ONCE 226 MG IM (20:14)
[2025-08-13] MEDS: PHENobarbitaL sodium 130 MG/ML VIAL IM Q3Hx2 170 MG IM (22:56)
[2025-08-14] VITALS (19 sets, daily range): BP systolic 150–176; BP diastolic 69–92; PULSE 74–102; RESP 12–20; TEMP 36.8–37.3; O2SAT 89–99; BMI 32.2
[2025-08-14 00:25] LABS: ABG Refer to POC result
[2025-08-14] MEDS: PHENobarbitaL sodium 130 MG/ML VIAL IM Q3Hx2 170 MG IM (02:07)
[2025-08-14 05:35] LABS: MANUAL DIFF FLAG NO
[2025-08-14 05:37] LABS: Hematocrit 42.8 % (42.0-52.0); Hemoglobin 14.0 g/dl (14.0-18.0); Imm Gran Abs Auto 0.03 X10*3/uL (0.00-0.03); Imm Gran Pct Auto 0.3 % (0.0-0.4); Lymphocytes Absolute Auto 1.3 X10*3/uL (1.2-4.9); Mean Corpuscular HGB Conc 32.7 g/dl (31.0-36.0); Mean Corpuscular Hemoglobin 31.5 pg (27.0-33.0); Mean Corpuscular Volume 96.2 fL (80.0-98.0); NRBC Abs Auto 0.000 X10*3/uL (0.0-0.012); NRBC Pct Auto 0.0 /100WBC (0.0-0.2); Platelet Count 149 X10*3/uL (160-400); Red Blood Count 4.45 X10*6/uL (4.60-5.80); White Blood Count 9.0 X10*3/uL (4.8-10.8)
[2025-08-14 05:38] LABS: VBG HCO3 25 mmol/L (22-26); VBG O2 % Saturation 66.0 %
--- NOTE | 2025-08-14 05:44 | PC.NURSE ---
assumed care 1900 pt confused unable to follow commands or answer simple yes/no questions, restless, reaching up in bed yelling help but unable to make needs known. mortician investigator made aware new order for Pheno protocol. admin as order. bp elevated [employer] Sales Director made aware. pt pt continues to be tense restless with little periods of rest despite pheno. NPO. oral care given as needed for comfort. jaffe in place for retention per previous shift. urine tea colored approximately 20cc per hr. repo q2 for comfort. full bath given. plan of care continues
[2025-08-14 05:46] LABS: Venous Blood Gas Refer to POC result
[2025-08-14 05:53] LABS: Albumin Level 3.7 g/dL (3.5-5.0); Anion Gap 15 (12-20); Blood Urea Nitrogen 9 mg/dL (9-16); Calcium 9.1 mg/dL (8.4-10.2); Carbon Dioxide 24 mmol/L (22-29); Chloride 106 mmol/L (96-108); Creatinine Clr Calc Pharmacy 76.2; Estimated Glomerular Filt Rate > 60; Magnesium 2.0 mg/dL (1.6-2.6); Potassium 3.7 mmol/L (3.3-5.1); Sodium 141 mmol/L (135-145)
[2025-08-14] MEDS: 0.9 % Sodium Chloride Flush 3 ML SYRINGE IVFLUSH ×3 (08:13→22:30)
--- NOTE | 2025-08-14 08:32 | MHC.CLN ---
F/U PT EXTUBATED REMAINS NPO FOLLOWING FOR DIET ADVANCEMENT
[2025-08-14] MEDS: Chlorhexidine Gluc Oral Rinse 15 ML MOUTHWASH BUCCAL ×3 (09:30→22:30)
--- NOTE | 2025-08-14 10:49 | PM.CCPN ---
Subjective Subjective Date of Service: 08/14/25 Interval History: 85-year-old gentleman with underlying AFib on Eliquis and alcohol abuse admitted on 08/11/2025 with alcohol withdrawal seizures requiring intubation and ventilatory support. Extubated uneventfully on 08/13/2025. No events overnight. Critical Care Time (minutes): 0 Physical Exam Vital Signs: Vital Signs: Last Vital Signs Temp 98.4 F 08/14/25 10:00 Pulse 77 08/14/25 10:00 Resp 18 08/14/25 10:00 BP 156/80 H 08/14/25 10:00 Pulse Ox 93 08/14/25 10:00 O2 Del Method Nasal Cannula 08/14/25 10:00 O2 Flow Rate 3 08/14/25 10:00 FiO2 30 08/13/25 14:00 Oxygen Flow Rate 2 08/11/25 11:39 BMI result Body Mass Index 32.2 Const: General: no acute distress, alert, awake and confusion Orientation/consciousness: confusion Eyes: Sclerae: sclerae normal EOM: EOMs intact bilaterally Neck: Neck: Yes no lymphadenopathy, Yes trachea midline and Yes supple Resp: Effort & Inspection: normal respiratory effort and no respiratory distress Auscultation: clear to auscultation bilaterally Cardio: Rate: regular rate Rhythm: regular rhythm Heart sounds: no gallops, no murmurs and no rubs GI: Palpation (GI): Soft to palpation and Other GI palpation findings present ( Nontender) Auscultation: normal bowel sounds Neuro: General: confusion Extrem: General: Yes no pedal edema, No clubbing and No cyanosis Objective Data Labs 08/14/25 05:25 08/14/25 05:25 Labs: Laboratory Results - last 24 hr 08/13/25 08/14/25 08/14/25 16:58 05:25 05:33 WBC 9.0 RBC 4.45 L Hgb 14.0 Hct 42.8 MCV 96.2 MCH 31.5 MCHC 32.7 RDW 15.4 Plt Count 149 L MPV 10.7 Immature Gran % (Auto) 0.3 Neut % (Auto) 69.2 Lymph % (Auto) 13.9 L [place] % (Auto) 15.4 H Eos % (Auto) 0.9 Baso % (Auto) 0.3 Lymph # (Auto) 1.3 [place] # (Auto) 1.4 H Eos # (Auto) 0.1 Baso # (Auto) 0.0 Abs Immat Gran (auto) 0.03 Absolute Neuts (auto) 6.2 Absolute Nucleated RBC 0.000 Nucleated RBC % (auto) 0.0 O2 Saturation 99.0 ABG pH at Pt Temp 7.42 ABG pCO2 at Pt Temp 37 ABG pO2 at Pt Temp 114 H ABG HCO3 24 ABG Base Excess (Actual) 0.4 VBG pH 7.46 H VBG pCO2 35 VBG pO2 40 VBG HCO3 25 VBG O2 Saturation 66.0 VBG Base Excess 2.3 Sodium 141 Potassium 3.7 Chloride 106 Carbon Dioxide 24 Anion Gap 15 BUN 9 Creatinine 0.84 Estim Creat Clear Calc 76.2 Estimated GFR > 60 Random Glucose 93 Calcium 9.1 Phosphorus 2.9 Magnesium 2.0 Albumin 3.7 Progress Note: A&P Assessment and plan (1) Alcohol withdrawal: Status: Acute (2) Afib: Status: Acute (3) Seizure: Status: Acute Plan Assessment: 85-year-old gentleman admitted with alcohol withdrawal seizure requiring intubation and ventilatory support. Plan: Neuro: Alcohol withdrawal, continue phenobarbital protocol. Cardiac: No acute issues. Pulmonary: Acute hypoxic respiratory failure on a background of alcohol withdrawal seizure requiring ventilatory support, resolved, extubated 08/13/2025. Renal: No acute issues. Endo: No acute issues. GI: No acute issues. ID: No acute issues Heme/Onc: No acute issues. Psych: No acute issues. Miscellaneous: No acute issues. Prophylaxis: Apixaban, PPI Diet: Pending swallow evaluation. Quality Stroke Does the patient have a stroke diagnosis?: No VTE Prior VTE?: No VTE Risk Level:: Medical - moderate - high VTE Device Contraindication: N/A - Device Ordered VTE Drug Contraindication: N/A - Med Ordered
--- NOTE | 2025-08-14 11:23 | PM.EVENT ---
Event Note Date of Service: 08/14/25 Event Note: Sign out given by Dr. Mukherjee, Pt will be transferred to medical floor, to continue Phenoabarb protocol for AW PTOT Time Spent With Patient Time: Total time managing care of this patient today ____ minutes.
[2025-08-14 11:35] LABS: Glucose, Whole Blood 109 mg/dL (60-115)
--- NOTE | 2025-08-14 13:05 | PC.NURSE ---
Assume Care @ 0700? Pt confused, following simple commands. On 3L NC no 02 at baseline. Afib on tele. Passed nursing bedside swallow, Awaiting for formal speech evalClint Houser removed, Due to void @ 1900. Skin: Intact Plan: Transfer to [facility]. No longer requiring ICU-level care.
--- NOTE | 2025-08-14 15:37 | MHC.SL.SWA ---
Speech Pathologist Impression: Risk of Aspiration Due to: s/p extubation, mild/moderate oral phase dysphagia, confusion Dysphasia Diet Status: Liquid Consistency and Strategies for Safe Swallow: Liquid Intake Recommendation: Thin Liquid Intake Strategies: Solid Food Consistency: Dietary Recommendations: Grnd/Mech Altered (NDD2) Additional Modifications to Solid Foods: Oral Medication Intake: Whole with Puree Please contact the pharmacy regarding appropriate crushable or liquid drug formulations that are available whenever modified delivery is recommended. Compensatory Strategies and Precautions to be Taken for Safe Swallow: Supervision While Eating and Drinking for Safe Swallow: Total Assistance (1:1) Foods to Avoid: tough, difficult to chew solids, too large pieces of food. Swallowing Recommended Treatments: Recommendation for Speech: Inpatient Speech Therapy Comment: Patient presents with mild to moderate oral phase dysphagia, UE weakness and confusion/encephalopathy which increases aspiration risk. Patient is s/p extubation =24 hours. Recommend DOWNGRADE diet to Ground/Mechanical (NDD2) continue on thin liquids, pills whole with puree. Patient requires 1-1 feeding due to UE weakness and confusion. No straws, liquids by controlled cup sip. [employer]IV[employer]ELOPMENT adjusted diet in [facility], /RD/RN notified by secure text, [employer] will continue to follow. Frequency/Duration: Date Range for Service Req: Timeline to reassess: Environmental Services Supervisor Clinican/Clinical Fellow: No Supervisory Statement: I have reviewed and agree with the student/clinical fellow's documentation: N/A Speech Language Pathologist: Nicole Marcus M.A., [facility]-[employer]IVIL [employer]AND DEVELOPMENT
[2025-08-14 15:46] LABS: INR Whole Blood 1.8 (0.9-1.1); Prothrombin Time Whole Blood 21.3 sec (11.1-13.5)
--- NOTE | 2025-08-14 19:40 | PC.NURSE ---
pt's jaffe cath removed at 1230; Pt was due to void at 1830; Bladder scanned pt at [address] Quentin Pearce made aware if str.cath or jaffe to be inserted; Per MD's order, pt to be str.cath if 500mL or more retaining. report given to overnight RN.
[2025-08-15] VITALS (7 sets, daily range): BP systolic 146–176; BP diastolic 83–93; PULSE 81–100; RESP 16–20; TEMP 36.6–37.4; O2SAT 95–99
[2025-08-15 07:05] LABS: MANUAL DIFF FLAG NO
[2025-08-15 07:09] LABS: Hematocrit 43.0 % (42.0-52.0); Hemoglobin 14.0 g/dl (14.0-18.0); Imm Gran Abs Auto 0.03 X10*3/uL (0.00-0.03); Imm Gran Pct Auto 0.3 % (0.0-0.4); Lymphocytes Absolute Auto 1.1 X10*3/uL (1.2-4.9); Mean Corpuscular HGB Conc 32.6 g/dl (31.0-36.0); Mean Corpuscular Hemoglobin 31.6 pg (27.0-33.0); Mean Corpuscular Volume 97.1 fL (80.0-98.0); NRBC Abs Auto 0.000 X10*3/uL (0.0-0.012); NRBC Pct Auto 0.0 /100WBC (0.0-0.2); Platelet Count 171 X10*3/uL (160-400); Red Blood Count 4.43 X10*6/uL (4.60-5.80); White Blood Count 8.6 X10*3/uL (4.8-10.8)
--- NOTE | 2025-08-15 07:20 | P.PNIM_ITS ---
Subjective Subjective Date of Service: 08/15/25 Interval History: Spoke to the patient's son over the phone and patient's girlfriend was at the bedside. Getting more history appears that the patient had had alcohol withdrawal seizures after coming back from his vacation from [facility] and [place]. Was intubated and extubated intubated on 07/12/2025, extubated 07/14/2025due to alcohol withdrawal seizures. Patient continues to be encephalopathy -per son this is new for him explained to him that it could be multifactorial Patient's son who is the healthcare proxy did state that he did not want extensive measures like intubation and chest compressions and code status has been changed to DNR DNI pt's son req PT/OT which can be resumed post resolution of encephalopathy - patient is quite delirious and can not tolerate being out of bed Review of Systems Review of Systems: Yes Unobtainable due to mental condition and Unobtainable due to mental status Physical Exam 2 Exam: Exam: General: AOx0 Resp: CTA bilaterally CVS: S1, S2, RRR GI: +BS, NT, no distention Neuro: limited 2/2 encephalopathy Psych: Appropriate affect Vital Signs: Vital Signs: Last Vital Signs Temp 98.5 F 08/15/25 04:00 Pulse 86 08/15/25 04:00 Resp 18 08/15/25 04:00 BP 176/90 H 08/15/25 04:00 Pulse Ox 99 08/15/25 04:00 O2 Del Method Nasal Cannula 08/15/25 04:00 O2 Flow Rate 2 08/15/25 04:00 FiO2 30 08/13/25 14:00 Oxygen Flow Rate 2 08/11/25 11:39 BMI result Body Mass Index 32.2 Objective Data Active Medications Chlorhexidine Gluconate (Chlorhexidine Gluc Oral Rinse 15 Ml Mouthwash) 15 ml BUCCAL TID [facility] Last Admin: 08/14/25 22:30 Dose: 15 ml Documented By: CALIN Ondansetron HCl (Ondansetron Hcl 4 Mg/2 Ml Vial) 4 mg IVPUSH Q6H PRN PRN Reason: Nausea and Vomiting Last Admin: 08/13/25 15:09 Dose: 4 mg Documented By: SHAY Pharmacy Consult (Consult Rx Etoh Phenob Im/Po) 1 each MISCELLANE ONCE PRN; Protocol PRN Reason: Consult order Pharmacy Consult (Consult Rx Etoh Phenob Im/Po) 1 each MISCELLANE ONCE PRN; Protocol PRN Reason: Consult order Phenobarbital (Phenobarbital 15 Mg Tablet) 45 mg PO BID [facility]; Protocol Stop: 08/15/25 21:01 Last Admin: 08/14/25 22:30 Dose: 45 mg Documented By: CALIN Phenobarbital (Phenobarbital 15 Mg Tablet) 15 mg PO BID [facility]; Protocol Stop: 08/17/25 21:01 Phenobarbital (Phenobarbital 15 Mg Tablet) 15 mg PO DAILY MARÍA; Protocol Stop: 08/19/25 09:01 Sodium Chloride (0.9 % Sodium Chloride Flush 3 Ml Syringe) 3 ml IVFLUSH QSHIFT [facility] Last Admin: 08/14/25 22:30 Dose: 3 ml Documented By: CALIN Labs 08/15/25 06:51 08/15/25 06:51 Labs: Laboratory Results - last 24 hr 08/11/25 08/14/25 08/15/25 11:35 11:28 06:51 MCV 97.1 MCH 31.6 MCHC 32.6 RDW 15.1 Plt Count 171 MPV 10.9 Immature Gran % (Auto) 0.3 Neut % (Auto) 68.0 Lymph % (Auto) 12.7 L [place] % (Auto) 17.3 H Eos % (Auto) 1.2 Baso % (Auto) 0.5 Lymph # (Auto) 1.1 L [place] # (Auto) 1.5 H Eos # (Auto) 0.1 Baso # (Auto) 0.0 Abs Immat Gran (auto) 0.03 Absolute Neuts (auto) 5.9 Absolute Nucleated RBC 0.000 Nucleated RBC % (auto) 0.0 PT (Fingerstick) 21.3 H INR (Fingerstick) 1.8 H POC Glucose 109 Assessment and Plan (1) Acute respiratory failure: Status: Acute Plan Patient is a 85 Y M w/ hypertension, atrial fibrillation on apixaban, and alcohol misuse, presenting to ED on 08/11 w/ encephalopathy, upper extremity weakness, initially made code stroke, though CT H and CTA H/N not suggestive of intracranial pathology; in ED, patient w/ witnessed seizure, given midazolam, though subsequently encephalopathic, likely d/t post-ictal state and benzodiazapine, necessitating intubation. Extubated 08/14/25 and transferred to medical floors for further medical management for alcohol withdrawal seizures. Encephalopathy- multi factorial metabolic and toxic secondary to alcohol withdrawal seizures , postanesthesia, physical deconditioning, possible Wernicke's encephalopathy still encephalopathic Alcohol withdrawal seizures Intubated 08/11/2025 and extubated 08/14/2025 Continue alcohol withdrawal protocol with phenobarbital Fall precautions Aspiration precautions Thiamine and folate initiated Check thiamine folate and B12 levels Stroke deemed less likely with imaging, weakness likely secondary to alcohol home withdrawal AFib on Eliquis - resumed HTN-resume losartan metoprolol and furosemide HLD-rosuvastatin Aspiration-speech therapy-likely in the setting of encephalopathy, following daily, and being adjusted accordingly Aspiration precautions DVT prophylaxis with Eliquis Spoke at length with the patient's son at the bedside over the phone-DNR DNI-son to bring the paperwork from home Patient needs ongoing hospitalization given severity of his clinical illness and need for close monitoring of labs, PTOT and medication adjustments in a patient with severe encephalopathy requiring ICU stay. This note is constructed using voice recognition software. While every effort has been made to ensure accuracy, compressor stations superintendent errors may have been included. Quality Stroke Does the patient have a stroke diagnosis?: No VTE Prior VTE?: No VTE Risk Level:: Medical - moderate - high VTE Device Contraindication: N/A - Device Ordered VTE Drug Contraindication: N/A - Med Ordered
[2025-08-15 07:35] LABS: Albumin Level 3.6 g/dL (3.5-5.0); Blood Urea Nitrogen 8 mg/dL (9-16); Calcium 9.5 mg/dL (8.4-10.2); Creatinine Clr Calc Pharmacy 78.7; Estimated Glomerular Filt Rate > 60; Magnesium 2.2 mg/dL (1.6-2.6)
[2025-08-15 07:48] LABS: Anion Gap 14 (12-20); Carbon Dioxide 30 mmol/L (22-29); Chloride 105 mmol/L (96-108); Potassium 4.7 mmol/L (3.3-5.1); Sodium 144 mmol/L (135-145)
[2025-08-15] MEDS: Chlorhexidine Gluc Oral Rinse 15 ML MOUTHWASH BUCCAL (08:14)
[2025-08-15] MEDS: 0.9 % Sodium Chloride Flush 3 ML SYRINGE IVFLUSH ×3 (08:14→22:24)
--- NOTE | 2025-08-15 10:24 | MHC.CM.PN ---
Per ROUNDS discussion, Patient is not yet medically cleared for dc (ICU downgrade); Patient will benefit from a PT Eval to assist with disposition and CM will continue to follow.
--- NOTE | 2025-08-15 12:31 | PC.NURSE ---
attempted to take the pt, off of supplemental O2. on RA sats dropped to 91%. pt placed back on 2L NC.
--- NOTE | 2025-08-15 12:35 | MHC.CLN ---
F/U PT TRANSFERRED TO MEDICAL FLOOR DIET RX: GRD M/S PT RECEIVING ENSURE TID TO PROVIDE 1050KCALS, 60G PROTEIN MONITOR PO INTAKE AND ENCOURAGE SUPPLEMENTS
--- NOTE | 2025-08-15 13:52 | MHC.SL.SWA ---
Speech Pathologist Impression: Oropharyngeal dysphagia Risk of Aspiration Due to: Recent extubation Confusion Hx of chronic cough Dysphasia Diet Status: Liquid Consistency and Strategies for Safe Swallow: Liquid Intake Recommendation: Thin Liquid Intake Strategies: Small Sips No Straws Solid Food Consistency: Dietary Recommendations: Grnd/Mech Altered (NDD2) Additional Modifications to Solid Foods: Oral Medication Intake: Whole with Puree Please contact the pharmacy regarding appropriate crushable or liquid drug formulations that are available whenever modified delivery is recommended. Compensatory Strategies and Precautions to be Taken for Safe Swallow: Sitting Upright (90 deg) No Straw Liquids from Cup Small Bites and Sips Alternate Liquids/Solids Rate of Ingestion Change Supervision While Eating and Drinking for Safe Swallow: Total Assistance (1:1) Foods to Avoid: tough, difficult to chew solids, too large pieces of food. Swallowing Recommended Treatments: Compens. Strategy Educat. Recommendation for Speech: Inpatient Speech Therapy Comment: Patient presents with mild to moderate oral phase dysphagia, UE weakness and confusion/encephalopathy which increases aspiration risk. Patient s/p extubation 24 hours at time of initial evaluation 08/14, mild pharyngeal phase dysphagia persists. CANDLE MOLDER MACHINE recommended DOWNGRADE diet to Ground/Mechanical (NDD2) continue on thin liquids, pills whole with puree. Patient requires 1-1 feeding due to UE weakness and confusion. No straws, liquids by controlled cup sip. CANDLE MOLDER MACHINE adjusted diet in [place], /RD/RN notified by secure text, recommendations clarified via secure text 08/15. CANDLE MOLDER MACHINE will continue to follow. Frequency/Duration: Date Range for Service Req: Timeline to reassess: Police Service Technician Clinican/Clinical Fellow: No Supervisory Statement: I have reviewed and agree with the student/clinical fellow's documentation: N/A Speech Language Pathologist: Radha Moore M.S., [facility]-CANDLE MOLDER MACHINE
[2025-08-15 17:29] LABS: Folate 11.1 ng/mL (> or = 4.0); Vitamin B12 422 pg/mL (200-900)
[2025-08-16] VITALS (8 sets, daily range): BP systolic 157–180; BP diastolic 81–98; PULSE 70–98; RESP 18–20; TEMP 36.4–37.1; O2SAT 96–98
[2025-08-16] MEDS: Metoprolol Succinate ER 100 MG TAB.ER.24H PO (08:34)
[2025-08-16] MEDS: Sodium,Potassium Phosphates POWD.PACK 1 PACKET PO (08:34)
[2025-08-16] MEDS: 0.9 % Sodium Chloride Flush 3 ML SYRINGE IVFLUSH ×3 (08:35→21:37)
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
--- NOTE | 2025-08-16 12:10 | MHC.SL.SWA ---
Speech Pathologist Impression: Mild oropharyngeal dysphagia Risk of Aspiration Due to: confusion/encephalopathy Dysphasia Diet Status: Recommend CONTINUE on NDD2, Thin liquids with 1:1 feeding assistance and medications FINELY CRUSHED in puree Liquid Consistency and Strategies for Safe Swallow: Liquid Intake Recommendation: Thin Liquid Intake Strategies: Small Sips No Straws Solid Food Consistency: Dietary Recommendations: Grnd/Mech Altered (NDD2) Additional Modifications to Solid Foods: Oral Medication Intake: Whole with Puree Please contact the pharmacy regarding appropriate crushable or liquid drug formulations that are available whenever modified delivery is recommended. Compensatory Strategies and Precautions to be Taken for Safe Swallow: Sitting Upright (90 deg) No Straw Liquids from Cup Small Bites and Sips Alternate Liquids/Solids Rate of Ingestion Change Supervision While Eating and Drinking for Safe Swallow: Total Assistance (1:1) Foods to Avoid: tough, difficult to chew solids, too large pieces of food. Swallowing Recommended Treatments: Compens. Strategy Educat. Recommendation for Speech: Inpatient Speech Therapy Comment: Patient met in room for dysphagia tx. Patient's girlfriend at bedside upon arrival. Patient's girlfriend reports toleration of breakfast this morning and provided 1:1 feeding assistance. Patient given applesauce with small janett cracker pieces. Noted impulsivity and intermittent confusion. Patient unable to modify bolus size by self; continue feeding assist to ensure controlled bite sizes. Patient with intermittent cough, not noted immediately after any PO intake. Cough perceived as mildly congested, sometimes dry. Patient tolerating current diet; not appropriate for upgrade at this time d/t impulsivity and confusion. Recommend CONTINUE with NDD2, Thin liquids. Patient and girlfriend in agreement with POC. RN notified in-person of recommendations. Frequency/Duration: Date Range for Service Req: Timeline to reassess: Workers' Compensation Magistrate Clinican/Clinical Fellow: No Supervisory Statement: I have reviewed and agree with the student/clinical fellow's documentation: N/A Speech Language Pathologist: Lou Camargo M.A., CCC-[employer]
--- NOTE | 2025-08-16 13:29 | HO.PM.IMPN ---
Subjective Subjective Date of Service: 08/16/25 Interval History: Patient seen and examined at bedside this morning, patient's phosphorus is decreased, continues to be encephalopathic. Recently had IV thiamine increased. Review of Systems Review of Systems: Yes all other systems are reviewed and are negative Physical Exam Exam: Exam: General: AxOx2, No acute distress Head: AT/NC ENT: Moist mucous membranes Neck: supple CVS; RRR, S1 S2 normal Lungs: Clear bilateral breath sounds, no wheezes or crackles Abd: Soft non tender, non distended Ext: No edema and no calf tenderness MSK: moving all 4 limbs Skin: No cyanosis or edema Psych: Cooperative with exam Neurology: no focal deficit Vital Signs: Vital Signs: Last Vital Signs Temp 98.8 F 08/16/25 10:53 Pulse 70 08/16/25 11:05 Resp 20 08/16/25 10:53 BP 157/91 H 08/16/25 10:53 Pulse Ox 97 08/16/25 11:05 O2 Del Method Nasal Cannula 08/16/25 10:53 O2 Flow Rate 2 08/16/25 10:53 FiO2 30 08/13/25 14:00 Oxygen Flow Rate 2 08/11/25 11:39 BMI result Body Mass Index 32.2 Objective Data Active Medications Apixaban (Apixaban 5 Mg Tablet) 5 mg PO BID [facility] Last Admin: 08/16/25 08:33 Dose: 5 mg Documented By: NIA Atorvastatin Calcium (Atorvastatin Calcium 80 Mg Tablet) 80 mg PO DAILY [facility] Last Admin: 08/16/25 08:34 Dose: 80 mg Documented By: NIA Folic Acid (Folic Acid 1 Mg Tablet) 1 mg PO DAILY [facility] Last Admin: 08/16/25 08:33 Dose: 1 mg Documented By: NIA Furosemide (Furosemide 40 Mg Tablet) 40 mg PO DAILY [facility]; Protocol Last Admin: 08/16/25 08:33 Dose: 40 mg Documented By: NIA Thiamine HCl 400 mg/ Sodium (Chloride) 104 mls @ 208 mls/hr IV Q12H [facility] Last Infusion: 08/16/25 12:21 Dose: Infused Documented By: NIA Losartan Potassium (Losartan Potassium 50 Mg Tablet) 50 mg PO DAILY [facility]; Protocol Last Admin: 08/16/25 08:33 Dose: 50 mg Documented By: NIA Metoprolol Succinate (Metoprolol Succinate Er 100 Mg Tab.Er.24h) 100 mg PO DAILY [facility]; Protocol Last Admin: 08/16/25 08:34 Dose: 100 mg Documented By: NIA Olanzapine (Olanzapine 2.5 Mg Tablet) 2.5 mg PO BEDTIME [facility] Last Admin: 08/15/25 22:24 Dose: 2.5 mg Documented By: MARY Ondansetron HCl (Ondansetron Hcl 4 Mg/2 Ml Vial) 4 mg IVPUSH Q6H PRN PRN Reason: Nausea and Vomiting Last Admin: 08/13/25 15:09 Dose: 4 mg Documented By: SHAY Pharmacy Consult (Consult Rx Etoh Phenob Im/Po) 1 each MISCELLANE ONCE PRN; Protocol PRN Reason: Consult order Pharmacy Consult (Consult Rx Etoh Phenob Im/Po) 1 each MISCELLANE ONCE PRN; Protocol PRN Reason: Consult order Phenobarbital (Phenobarbital 15 Mg Tablet) 15 mg PO BID [facility]; Protocol Stop: 08/17/25 21:01 Last Admin: 08/16/25 08:34 Dose: 15 mg Documented By: NIA Phenobarbital (Phenobarbital 15 Mg Tablet) 15 mg PO DAILY [facility]; Protocol Stop: 08/19/25 09:01 Sodium Chloride (0.9 % Sodium Chloride Flush 3 Ml Syringe) 3 ml IVFLUSH QSHIFT [facility] Last Admin: 08/16/25 08:35 Dose: 3 ml Documented By: NIA Labs 08/15/25 06:51 08/15/25 06:51 Labs: Laboratory Results - last 24 hr 08/15/25 16:30 Vitamin B12 422 Folate 11.1 Assessment and Plan (1) Afib: Status: Acute (2) Seizure: Status: Acute (3) Acute respiratory failure: Status: Acute (4) Alcohol withdrawal: Status: Acute Plan 85 Y M w/ hypertension, atrial fibrillation on apixaban, and alcohol misuse, presenting to ED on 08/11 w/ encephalopathy, upper extremity weakness, initially made code stroke, though CT H and CTA H/N not suggestive of intracranial pathology; in ED, patient w/ witnessed seizure, given midazolam, requiring intubation. Extubated 08/14/25 and transferred to medical floors for further medical management for alcohol withdrawal seizures. Toxic Metabolic Encephalopathy- suspect underlyinh Wenicke's encephalopathy Acute hypoxic respiratory failure 2/2 seizure Intubated 08/11/2025 and extubated 08/14/2025 -Continue alcohol withdrawal protocol with phenobarbital -Fall precautions -Aspiration precautions -Continue IV thiamine and PO folic acid -delirium precautions -ammonia level ordered, to consider possible MRI? AFib, chronic Will continue with metoprolol and Eliquis HTN -Continue losartan and lasix, will adjust medications accordingly HLD -Continue atorvastatin 80mg DVT prophylaxis with Eliquis Disposition: All questions and concerns with the patient were answered to satisfaction. All pertinent clinical documents, images and labs were reviewed. DISCLAIMER: This document was created using voice recognition software. Any mistakes in the prescription are unintentional. An attempt was made to focus for accuracy, but to expedite availability, some errors may persist. Please contact with any need for correction or further clarification Total time managing care of this patient today: 55 minutes. Quality Stroke Does the patient have a stroke diagnosis?: No VTE Prior VTE?: No VTE Risk Level:: Medical - moderate - high VTE Device Contraindication: N/A - Device Ordered VTE Drug Contraindication: N/A - Med Ordered
[2025-08-16 14:04] LABS: Ammonia 27 umol/L (13-55)
--- NOTE | 2025-08-17 | EEG_ITS ---
Reason for Exam: seizure R56.9 History: 85 Y M w/ hypertension, atrial fibrillation on apixaban, and alcohol misuse, presenting to ED on 08/11 w/ encephalopathy, upper extremity weakness, initially made code stroke, though CT H and CTA H/N not suggestive of intracranial pathology; in ED, patient w/ witnessed seizure, given midazolam, requiring intubation. Extubated 08/14/25 and transferred to medical floors for further medical management for alcohol withdrawal seizures. Medication: Apixaban , atorvastatin, Folic Acid, Furosemide, Thiamine, Losartan Potassium, Metoprolol Succinate, Olanzapine, Ondansetron HCl, Phenobarbital, Sodium Chloride Technical description Photic stimulation: completed Hyperventilation:?omitted Behavioral state: pleasant, sleepy, slightly confused State of Consciousness: awake and sleep Skull defect: none Sedation: none Handedness: right Duration of study:?25 min 16 sec Description: He is 16 channel EEG with an EKG lead. Patient is reported awake and sleep during the tracing. Background EEG rhythm is mixed theta beta low to medium amplitude with no obvious asymmetry or paroxysmal tendency. Photic stimulation does not produce any significant driving. Hyperventilation is not performed. Cardiac lead does not reveal any significant abnormality. No sharp wave spikes or paroxysmal tendency noted. Impression: Mild slowing with no evidence of seizure disorder MTDD
[2025-08-17 03:00] VITALS: BP 150/77; PULSE 77; RESP 18; TEMP 36.8; O2SAT 93
[2025-08-17 07:14] VITALS: BP 167/89; PULSE 94; RESP 20; TEMP 36.9; O2SAT 97
[2025-08-17] MEDS: Metoprolol Succinate ER 100 MG TAB.ER.24H PO (08:34)
[2025-08-17] MEDS: 0.9 % Sodium Chloride Flush 3 ML SYRINGE IVFLUSH ×3 (08:42→21:21)
--- NOTE | 2025-08-17 10:24 | MHC.CM.PN ---
Patient is not yet medically cleared for dc (Neuro Consult pending); PT is recommending STR and Patient has bed offers. CM will follow.
--- NOTE | 2025-08-17 11:08 | MHC.CLN ---
F/U PO INTAKE 50-75% DIET RX: GRD M/S PT RECEIVING ENSURE TID TO PROVIDE 1050KCALS, 60G PROTEIN MONITOR PO INTAKE AND ENCOURAGE SUPPLEMENTS RD TO FOLLOW WEEKLY
--- NOTE | 2025-08-17 11:10 | PM.NEUROCN ---
History of Present Illness Data of Consult Service Date: 08/17/25 Primary Care Provider: Lorene Avila CNP HPI Reason for consult: Seizure 85 years old man living alone drinking few alcoholic beverages a day was brought to hospital with problem breathing. Apparently he had a convulsion and was treated with midazolam and then intubated. After extubation now he was on intermediate care floor. He denied having any previous seizures. He was feeling better and ?okay?. There was no recent head trauma or fall. His initial brain scan did not reveal any acute pathology. Review of Systems Review of Systems: Shortness of breath and respiratory distress bring him to emergency room. Drinking 3-4 alcoholic beverages a day Living alone but not having any significant issues. No recent change in personality or weight loss No bowel bladder difficulties PMFSH Social History Social History Household Members: Significant Other and Family Household Members Other:: Alone Housing: House Do you presently have visiting nurse or other home services: No Patient Tobacco Use Status: Former Tobacco user Currently Displaying Signs/Symptoms of Drug Intoxication Withdrawal: No Hinduism Healthcare Practices: Mu-Ism Advance Directives: Yes Advance Directives Information Provided: Yes Advance Directives on File: Yes Advance Directives Date on File: 08/12/25 Recently lost weight without trying: No Nutrition Risks: No Nutritional Risk Poor oral hygiene: No service: No Meds Allergies Allergy/AdvReac Type Severity Reaction Status Date / Time No Known Allergies Allergy Verified 08/11/25 11:48 Active Medications: Current Medications Apixaban (Apixaban 5 Mg Tablet) 5 mg PO BID [facility] Last Admin: 08/17/25 08:34 Dose: 5 mg Artificial Tears (Artificial Tears 15 Ml Drops) 2 drop EYE-BOTH QID PRN PRN Reason: Dry Eyes Atorvastatin Calcium (Atorvastatin Calcium 80 Mg Tablet) 80 mg PO DAILY [facility] Last Admin: 08/17/25 08:34 Dose: 80 mg Folic Acid (Folic Acid 1 Mg Tablet) 1 mg PO DAILY [facility] Last Admin: 08/17/25 08:34 Dose: 1 mg Furosemide (Furosemide 40 Mg Tablet) 40 mg PO DAILY [facility]; Protocol Last Admin: 08/17/25 08:34 Dose: 40 mg Thiamine HCl 400 mg/ Sodium (Chloride) 104 mls @ 208 mls/hr IV Q12H [facility] Last Admin: 08/17/25 10:33 Dose: 208 mls/hr Losartan Potassium (Losartan Potassium 50 Mg Tablet) 50 mg PO DAILY [facility]; Protocol Last Admin: 08/17/25 08:34 Dose: 50 mg Metoprolol Succinate (Metoprolol Succinate Er 100 Mg Tab.Er.24h) 100 mg PO DAILY [facility]; Protocol Last Admin: 08/17/25 08:34 Dose: 100 mg Olanzapine (Olanzapine 2.5 Mg Tablet) 2.5 mg PO BEDTIME [facility] Last Admin: 08/16/25 21:33 Dose: 2.5 mg Ondansetron HCl (Ondansetron Hcl 4 Mg/2 Ml Vial) 4 mg IVPUSH Q6H PRN PRN Reason: Nausea and Vomiting Last Admin: 08/13/25 15:09 Dose: 4 mg Pharmacy Consult (Consult Rx Etoh Phenob Im/Po) 1 each MISCELLANE ONCE PRN; Protocol PRN Reason: Consult order Pharmacy Consult (Consult Rx Etoh Phenob Im/Po) 1 each MISCELLANE ONCE PRN; Protocol PRN Reason: Consult order Phenobarbital (Phenobarbital 15 Mg Tablet) 15 mg PO BID [facility]; Protocol Stop: 08/17/25 21:01 Last Admin: 08/17/25 08:33 Dose: 15 mg Phenobarbital (Phenobarbital 15 Mg Tablet) 15 mg PO DAILY [facility]; Protocol Stop: 08/19/25 09:01 Sodium Chloride (0.9 % Sodium Chloride Flush 3 Ml Syringe) 3 ml IVFSH [facility] Last Admin: 08/17/25 08:42 Dose: 3 ml Home Medications ?Medication ?Instructions ?Recorded ?Confirmed ?Last Taken ?Type apixaban 5 mg tablet (Eliquis) 5 mg PO BID 08/11/25 08/11/25 08/11/25 History furosemide 40 mg tablet 40 mg PO DAILY 08/11/25 08/11/25 08/11/25 History losartan 50 mg tablet 50 mg PO DAILY 08/11/25 08/11/25 08/11/25 History metoprolol succinate 100 mg 100 mg PO DAILY 08/11/25 08/11/25 08/11/25 History tablet,extended release 24 hr rosuvastatin 40 mg tablet 40 mg PO QPM 08/11/25 08/11/25 08/10/25 History Physical Exam Vital Signs: Vital Signs: Last Vital Signs Temp 98.4 F 08/17/25 07:14 Pulse 94 08/17/25 07:14 Resp 20 08/17/25 07:14 BP 167/89 H 08/17/25 07:14 Pulse Ox 97 08/17/25 07:14 O2 Del Method Nasal Cannula 08/17/25 07:14 O2 Flow Rate 2 08/17/25 07:14 FiO2 30 08/13/25 14:00 Oxygen Flow Rate 2 08/11/25 11:39 BMI result Body Mass Index 32.2 Neuro: Other: Mental Status: Alert and awake with normal spontaneity of speech fluency comprehension and affect. He knew that he was in hospital in [place]. He was following commands. Cranial Nerves: CN II: Visual hernandez full to confrontation, visual acuity intact. CN III, IV, : Pupils equal, round, reactive to light and accommodation. Extraocular movements are normal. CN V: Facial sensation is normal. CN VII: Facial movements symmetrical. CN VIII: Hearing intact to bedside conversation is normal. CN IX, X: Palate elevates symmetrically. CN XI: Shoulder shrug and head turn symmetrical. CN XII: Tongue midline without atrophy or fasciculations. Motor: Deep tendon reflexes are absent. Plantars are flexor. No obvious focal arm or leg weakness. Extrapyramidal: Full facial expressions and blinking. Normal; no dysarthria or tremor. Results Labs 08/15/25 06:51 08/15/25 06:51 Labs: CT angiography head and neck with contrast. 3D Postprocessing. Comparison: Same day head CT Findings: Focal short segmental, up to 71% stenosis of the distal most aspect of the left common carotid artery (at/just proximal to the bifurcation) due to calcified plaques. 82% stenosis of the right carotid bulb due to calcified plaques. Severely attenuated appearance of the left AICA may be congenital or due to age-indeterminate stenosis. Dominant left vertebral artery. Mild attenuated appearance of the right V4 after right PICA origin may be congenital or due to age-indeterminate stenosis. Clinical +/-MRI correlation recommended. Otherwise no evidence of significant arterial stenosis, aneurysm, AVM, or dissection. Patent dural venous sinuses. No abnormal intracranial enhancement. For rest of head findings please refer to same-day nonenhanced head CT report. [id number] biapical pleural effusions. Partially evaluated enlarged right main pulmonary artery measuring up to 30 mm in width. Query pulmonary arterial hypertension. Absent versus atrophied left submandibular gland. Asymmetric fullness of the left floor of the mild (series 6 image 590; incidental or due to an underlying lesion) could be further evaluated with a nonemergent MRI. IMPRESSION: Focal short segmental, up to 71% stenosis of the distal most aspect of the left common carotid artery (at/just proximal to the bifurcation) due to calcified plaques. 82% stenosis of the right carotid bulb due to calcified plaques. Severely attenuated appearance of the left AICA may be congenital or due to age-indeterminate stenosis. Dominant left vertebral artery. Mild attenuated appearance of the right V4 after right PICA origin may be congenital or due to age-indeterminate stenosis. Clinical +/-MRI correlation recommended. Otherwise no evidence of significant arterial stenosis, aneurysm, AVM, or dissection. [id number] biapical pleural effusions. Query pulmonary arterial hypertension. Asymmetric fullness of the left floor of the mild (incidental or due to an underlying lesion) could be further evaluated with a nonemergent MRI. Assessment and Plan (1) Seizure: Status: Acute 85 years old man who came to hospital with respiratory difficulty and apparently had a convulsion. He has been drinking few alcoholic beverages a day. His head CT did not reveal any acute pathology. CTA revealed bilateral moderate internal carotid artery stenosis, which would not explain the seizure. His head CT did have moderate cerebellar and cortical atrophy suggesting that he probably has been drinking for long time. Alcohol withdrawal or alcohol-related seizure is a possibility. At the same time epileptic seizure is not uncommon and this age group and with this history. An EEG is recommended. He should be advised to not drive at this time and follow [facility] law according to which he could not drive for 6 months. He should also be careful not be involved in an activity that could put his life in danger such as swimming alone or sitting in a soaking tub alone. Procedures Date of Service Date of Service: 08/17/25
[2025-08-17 11:14] VITALS: BP 165/78; PULSE 84; RESP 20; TEMP 36.9; O2SAT 95
--- NOTE | 2025-08-17 13:16 | HO.PM.IMPN ---
Subjective Subjective Date of Service: 08/17/25 Interval History: Patient seen examined at bedside this morning, son at bedside, at this time more alert, continues to be encephalopathic. Spoke with Neurology, suggested on possible EEG for seizures. Review of Systems Review of Systems: Yes all other systems are reviewed and are negative Physical Exam Exam: Exam: General: AxOx2, No acute distress Head: AT/NC ENT: Moist mucous membranes Neck: supple CVS; RRR, S1 S2 normal Lungs: Clear bilateral breath sounds, no wheezes or crackles Abd: Soft non tender, non distended Ext: No edema and no calf tenderness MSK: moving all 4 limbs Skin: No cyanosis or edema Psych: Cooperative with exam Neurology: no focal deficit Vital Signs: Vital Signs: Last Vital Signs Temp 98.5 F 08/17/25 11:14 Pulse 84 08/17/25 11:14 Resp 20 08/17/25 11:14 BP 165/78 H 08/17/25 11:14 Pulse Ox 95 08/17/25 11:14 O2 Del Method Nasal Cannula 08/17/25 11:14 O2 Flow Rate 2 08/17/25 11:14 FiO2 30 08/13/25 14:00 Oxygen Flow Rate 2 08/11/25 11:39 BMI result Body Mass Index 32.2 Objective Data Active Medications Apixaban (Apixaban 5 Mg Tablet) 5 mg PO BID [facility] Last Admin: 08/17/25 08:34 Dose: 5 mg Documented By: NIA Artificial Tears (Artificial Tears 15 Ml Drops) 2 drop EYE-BOTH QID PRN PRN Reason: Dry Eyes Atorvastatin Calcium (Atorvastatin Calcium 80 Mg Tablet) 80 mg PO DAILY [facility] Last Admin: 08/17/25 08:34 Dose: 80 mg Documented By: NIA Folic Acid (Folic Acid 1 Mg Tablet) 1 mg PO DAILY [facility] Last Admin: 08/17/25 08:34 Dose: 1 mg Documented By: NIA Furosemide (Furosemide 40 Mg Tablet) 40 mg PO DAILY [facility]; Protocol Last Admin: 08/17/25 08:34 Dose: 40 mg Documented By: NIA Thiamine HCl 400 mg/ Sodium (Chloride) 104 mls @ 208 mls/hr IV Q12H [facility] Last Infusion: 08/17/25 12:18 Dose: Infused Documented By: NIA Losartan Potassium (Losartan Potassium 50 Mg Tablet) 50 mg PO DAILY [facility]; Protocol Last Admin: 08/17/25 08:34 Dose: 50 mg Documented By: NIA Metoprolol Succinate (Metoprolol Succinate Er 100 Mg Tab.Er.24h) 100 mg PO DAILY [facility]; Protocol Last Admin: 08/17/25 08:34 Dose: 100 mg Documented By: NIA Olanzapine (Olanzapine 2.5 Mg Tablet) 2.5 mg PO BEDTIME [facility] Last Admin: 08/16/25 21:33 Dose: 2.5 mg Documented By: PAO Ondansetron HCl (Ondansetron Hcl 4 Mg/2 Ml Vial) 4 mg IVPUSH Q6H PRN PRN Reason: Nausea and Vomiting Last Admin: 08/13/25 15:09 Dose: 4 mg Documented By: SHAY Pharmacy Consult (Consult Rx Etoh Phenob Im/Po) 1 each MISCELLANE ONCE PRN; Protocol PRN Reason: Consult order Pharmacy Consult (Consult Rx Etoh Phenob Im/Po) 1 each MISCELLANE ONCE PRN; Protocol PRN Reason: Consult order Phenobarbital (Phenobarbital 15 Mg Tablet) 15 mg PO BID [facility]; Protocol Stop: 08/17/25 21:01 Last Admin: 08/17/25 08:33 Dose: 15 mg Documented By: NIA Phenobarbital (Phenobarbital 15 Mg Tablet) 15 mg PO DAILY [facility]; Protocol Stop: 08/19/25 09:01 Sodium Chloride (0.9 % Sodium Chloride Flush 3 Ml Syringe) 3 ml IVFLUSH [facility] Last Admin: 08/17/25 08:42 Dose: 3 ml Documented By: NIA Labs 08/15/25 06:51 08/15/25 06:51 Labs: Laboratory Results - last 24 hr 08/16/25 13:41 Ammonia 27 Assessment and Plan (1) Seizure: Status: Acute (2) Acute respiratory failure: Status: Acute (3) Alcohol withdrawal: Status: Acute Plan 85 Y M w/ hypertension, atrial fibrillation on apixaban, and alcohol misuse, presenting to ED on 08/11 w/ encephalopathy, upper extremity weakness, initially made code stroke, though CT H and CTA H/N not suggestive of intracranial pathology; in ED, patient w/ witnessed seizure, given midazolam, requiring intubation. Extubated 08/14/25 and transferred to medical floors for further medical management for alcohol withdrawal seizures. 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 All pertinent clinical documents, images and labs were reviewed. DISCLAIMER: This document was created using voice recognition software. Any mistakes in the prescription are unintentional. An attempt was made to focus for accuracy, but to expedite availability, some errors may persist. Please contact with any need for correction or further clarification Total time managing care of this patient today: 55 minutes. Quality Stroke Does the patient have a stroke diagnosis?: No VTE Prior VTE?: No VTE Risk Level:: Medical - moderate - high VTE Device Contraindication: N/A - Device Ordered VTE Drug Contraindication: N/A - Med Ordered
--- NOTE | 2025-08-17 14:35 | MHC.CM.PN ---
CM met with Patient and his Son at bedside and provided them with the list of 6 SNFs that have offered Patient a bed. Son wishes to research the facilities; Patient is not yet medically cleared for dc. CM will follow.
--- NOTE | 2025-08-17 15:08 | MHC.SL.SWA ---
Speech Pathologist Impression: Risk of Aspiration, Oropharyngeal Dysphagia Risk of Aspiration Due to: Impulsivity/Confusion Dysphasia Diet Status: No Change Liquid Consistency and Strategies for Safe Swallow: Liquid Intake Recommendation: Thin Liquid Intake Strategies: Small Sips No Straws Solid Food Consistency: Dietary Recommendations: Grnd/Mech Altered (NDD2) Oral Medication Intake: Whole with Puree Please contact the pharmacy regarding appropriate crushable or liquid drug formulations that are available whenever modified delivery is recommended. Compensatory Strategies and Precautions to be Taken for Safe Swallow: Sitting Upright (90 deg) No Straw Liquids from Cup Small Bites and Sips Alternate Liquids/Solids Rate of Ingestion Change Supervision While Eating and Drinking for Safe Swallow: Total Assistance (1:1) Foods to Avoid: tough, difficult to chew solids, too large pieces of food. Swallowing Recommended Treatments: Compens. Strategy Educat. Recommendation for Speech: Inpatient Speech Therapy Glove Presser Clinican/Clinical Fellow: No Supervisory Statement: I have reviewed and agree with the student/clinical fellow's documentation: N/A Speech Language Pathologist: Catalina Collier M.A., CCC-MEDICAL COLLECTIONS
[2025-08-17 16:00] VITALS: BP 152/73; PULSE 83; RESP 18; TEMP 37.2; O2SAT 96
[2025-08-17] MEDS: Artificial Tears 15 ML DROPS 2 DROP EYE-BOTH (17:51)
[2025-08-17 20:00] VITALS: BP 168/70; PULSE 58; RESP 14; TEMP 37.6; O2SAT 94
[2025-08-17 23:35] VITALS: BP 167/87; PULSE 88; RESP 18; TEMP 37.7; O2SAT 92
[2025-08-18 03:24] VITALS: BP 161/75; PULSE 79; RESP 18; TEMP 36.9; O2SAT 92
[2025-08-18 07:54] LABS: Anion Gap 11 (12-20); Blood Urea Nitrogen 10 mg/dL (9-16); Calcium 9.1 mg/dL (8.4-10.2); Carbon Dioxide 33 mmol/L (22-29); Chloride 97 mmol/L (96-108); Creatinine Clr Calc Pharmacy 86.2; Estimated Glomerular Filt Rate > 60; Magnesium 1.9 mg/dL (1.6-2.6); Potassium 3.2 mmol/L (3.3-5.1); Sodium 138 mmol/L (135-145)
[2025-08-18 08:00] VITALS: BP 162/78; PULSE 79; RESP 18; TEMP 37.1; O2SAT 93
[2025-08-18] MEDS: Metoprolol Succinate ER 100 MG TAB.ER.24H PO (09:54)
[2025-08-18 12:00] VITALS: BP 162/79; PULSE 80; RESP 18; TEMP 37; O2SAT 92
--- NOTE | 2025-08-18 12:10 | P.PNIM_ITS ---
Subjective Subjective Date of Service: 08/18/25 Interval History: Patient seen and examined at bedside this morning, patient had EEG done yesterday, which results. Patient more alert and oriented today. No acute overnight events. Review of Systems Review of Systems: Yes all other systems are reviewed and are negative Physical Exam 2 Exam: Exam: General: AxOx2, No acute distress Head: AT/NC ENT: Moist mucous membranes Neck: supple CVS; RRR, S1 S2 normal Lungs: Clear bilateral breath sounds, no wheezes or crackles Abd: Soft non tender, non distended Ext: No edema and no calf tenderness MSK: moving all 4 limbs Skin: No cyanosis or edema Psych: Cooperative with exam Neurology: no focal deficit Vital Signs: Vital Signs: Last Vital Signs Temp 98.8 F 08/18/25 08:00 Pulse 79 08/18/25 08:00 Resp 18 08/18/25 08:00 BP 162/78 H 08/18/25 08:00 Pulse Ox 93 08/18/25 08:00 O2 Del Method Room Air 08/18/25 08:00 O2 Flow Rate 1 08/17/25 20:00 FiO2 30 08/13/25 14:00 Oxygen Flow Rate 2 08/11/25 11:39 BMI result Body Mass Index 32.2 Objective Data Active Medications Apixaban (Apixaban 5 Mg Tablet) 5 mg PO BID [facility] Last Admin: 08/18/25 09:55 Dose: 5 mg Documented By: CAMILO Artificial Tears (Artificial Tears 15 Ml Drops) 2 drop EYE-BOTH QID PRN PRN Reason: Dry Eyes Last Admin: 08/17/25 17:51 Dose: 2 drop Documented By: NIA Atorvastatin Calcium (Atorvastatin Calcium 80 Mg Tablet) 80 mg PO DAILY [facility] Last Admin: 08/18/25 09:55 Dose: 80 mg Documented By: CAMILO Folic Acid (Folic Acid 1 Mg Tablet) 1 mg PO DAILY [facility] Last Admin: 08/18/25 09:54 Dose: 1 mg Documented By: CAMILO Furosemide (Furosemide 40 Mg Tablet) 40 mg PO DAILY [facility]; Protocol Last Admin: 08/18/25 09:55 Dose: 40 mg Documented By: CAMILO Thiamine HCl 400 mg/ Sodium (Chloride) 104 mls @ 208 mls/hr IV Q12H [facility] Last Infusion: 08/18/25 10:51 Dose: Infused Documented By: CAMILO Losartan Potassium (Losartan Potassium 50 Mg Tablet) 100 mg PO DAILY [facility]; Protocol Metoprolol Succinate (Metoprolol Succinate Er 100 Mg Tab.Er.24h) 100 mg PO DAILY [facility]; Protocol Last Admin: 08/18/25 09:54 Dose: 100 mg Documented By: CAMILO Olanzapine (Olanzapine 2.5 Mg Tablet) 2.5 mg PO BEDTIME [facility] Last Admin: 08/17/25 21:19 Dose: 2.5 mg Documented By: JAMA Ondansetron HCl (Ondansetron Hcl 4 Mg/2 Ml Vial) 4 mg IVPUSH Q6H PRN PRN Reason: Nausea and Vomiting Last Admin: 08/13/25 15:09 Dose: 4 mg Documented By: SHAY Pharmacy Consult (Consult Rx Etoh Phenob Im/Po) 1 each MISCELLANE ONCE PRN; Protocol PRN Reason: Consult order Pharmacy Consult (Consult Rx Etoh Phenob Im/Po) 1 each MISCELLANE ONCE PRN; Protocol PRN Reason: Consult order Phenobarbital (Phenobarbital 15 Mg Tablet) 15 mg PO DAILY [facility]; Protocol Stop: 08/19/25 09:01 Last Admin: 08/18/25 09:56 Dose: 15 mg Documented By: CAMILO Sodium Chloride (0.9 % Sodium Chloride Flush 3 Ml Syringe) 3 ml IVFLUSH QSHIFT [facility] Last Admin: 08/18/25 09:55 Dose: Not Given Documented By: CAMILO Non-Admin Reason: IV Running Labs 08/15/25 06:51 08/18/25 07:18 Labs: Laboratory Results - last 24 hr 08/18/25 07:18 Anion Gap 11 L Estim Creat Clear Calc 86.2 Estimated GFR > 60 Random Glucose 104 Calcium 9.1 Magnesium 1.9 Assessment and Plan (1) Afib: Status: Acute (2) Alcohol withdrawal: Status: Acute (3) Hypertension: Status: Acute (4) Seizure: Status: Acute Plan 85 Y M w/ hypertension, atrial fibrillation on apixaban, and alcohol misuse, presenting to ED on 08/11 w/ encephalopathy, upper extremity weakness, initially made code stroke, though CT H and CTA H/N not suggestive of intracranial pathology; in ED, patient w/ witnessed seizure, given midazolam, requiring intubation. Extubated 08/14/25 and transferred to medical floors for further medical management for alcohol withdrawal seizures. 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, improving Acute hypoxic respiratory failure 2/2 seizure Intubated 08/11/2025 and extubated 08/14/2025 -Continue alcohol withdrawal protocol with phenobarbital -Fall precautions -Aspiration precautions -Continue IV thiamine and PO folic acid -delirium precautions -EEG ordered, pending results -neuro consulted, suggested on EEG AFib, chronic Will continue with metoprolol and Eliquis HTN -will increase losartan to 100mg qd and continue lasix, will adjust medications accordingly HLD -Continue atorvastatin 80mg DVT prophylaxis with Eliquis Disposition: All questions and concerns with the patient were answered to satisfaction. All pertinent clinical documents, images and labs were reviewed. DISCLAIMER: This document was created using voice recognition software. Any mistakes in the prescription are unintentional. An attempt was made to focus for accuracy, but to expedite availability, some errors may persist. Please contact with any need for correction or further clarification Total time managing care of this patient today: 35 minutes. Quality Stroke Does the patient have a stroke diagnosis?: No VTE Prior VTE?: No VTE Risk Level:: Medical - moderate - high VTE Device Contraindication: N/A - Device Ordered VTE Drug Contraindication: N/A - Med Ordered
[2025-08-18 12:41] LABS: Hematocrit 45.8 % (42.0-52.0); Hemoglobin 15.1 g/dl (14.0-18.0); Mean Corpuscular HGB Conc 33.0 g/dl (31.0-36.0); Mean Corpuscular Hemoglobin 30.9 pg (27.0-33.0); Mean Corpuscular Volume 93.9 fL (80.0-98.0); NRBC Abs Auto 0.000 X10*3/uL (0.0-0.012); NRBC Pct Auto 0.0 /100WBC (0.0-0.2); Platelet Count 247 X10*3/uL (160-400); Red Blood Count 4.88 X10*6/uL (4.60-5.80); White Blood Count 10.3 X10*3/uL (4.8-10.8)
[2025-08-18 12:55] LABS: Anion Gap 13 (12-20); Blood Urea Nitrogen 10 mg/dL (9-16); Calcium 9.3 mg/dL (8.4-10.2); Carbon Dioxide 31 mmol/L (22-29); Chloride 97 mmol/L (96-108); Creatinine Clr Calc Pharmacy 91.1; Estimated Glomerular Filt Rate > 60; Magnesium 1.9 mg/dL (1.6-2.6); Potassium 3.1 mmol/L (3.3-5.1); Sodium 138 mmol/L (135-145)
[2025-08-18 19:25] VITALS: BP 126/67; PULSE 71; RESP 18; TEMP 37.3; O2SAT 93
[2025-08-18] MEDS: 0.9 % Sodium Chloride Flush 3 ML SYRINGE IVFLUSH (21:39)
[2025-08-19] VITALS (11 sets, daily range): BP systolic 119–170; BP diastolic 62–89; PULSE 84–98; RESP 18–20; TEMP 37.1–39.2; O2SAT 92–95
[2025-08-19] MEDS: 0.9 % Sodium Chloride Flush 3 ML SYRINGE IVFLUSH (08:18)
[2025-08-19] MEDS: Metoprolol Succinate ER 100 MG TAB.ER.24H PO (08:20)
[2025-08-19 08:29] LABS: Anion Gap 15 (12-20); Blood Urea Nitrogen 12 mg/dL (9-16); Calcium 9.2 mg/dL (8.4-10.2); Carbon Dioxide 30 mmol/L (22-29); Chloride 96 mmol/L (96-108); Creatinine Clr Calc Pharmacy 78.7; Estimated Glomerular Filt Rate > 60; Magnesium 1.8 mg/dL (1.6-2.6); Potassium 2.8 mmol/L (3.3-5.1); Sodium 138 mmol/L (135-145)
[2025-08-19] MEDS: Potassium Chloride/H20 10 MEQ/100 ML PIGGYBACK 100 MEQ IV ×4 (09:09→13:03)
--- NOTE | 2025-08-19 10:20 | HO.PM.IMPN ---
Subjective Subjective Date of Service: 08/19/25 Interval History: Patient seen and examined at bedside this morning, awaiting for EEG, per physical therapy suggested on short-term rehab. Patient is hypokalemic, potassium monitor. Patient mentions that he has been feeling better, able to identify where he is at at this time. Review of Systems Review of Systems: Yes all other systems are reviewed and are negative Physical Exam Exam: Exam: General: AxOx3, No acute distress Head: AT/NC ENT: Moist mucous membranes Neck: supple CVS; RRR, S1 S2 normal Lungs: Clear bilateral breath sounds, no wheezes or crackles Abd: Soft non tender, non distended Ext: No edema and no calf tenderness MSK: moving all 4 limbs Skin: No cyanosis or edema Psych: Cooperative with exam Neurology: no focal deficit Vital Signs: Vital Signs: Last Vital Signs Temp 98.9 F 08/19/25 03:00 Pulse 88 08/19/25 08:17 Resp 18 08/19/25 08:17 BP 148/71 H 08/19/25 08:17 Pulse Ox 95 08/19/25 08:17 O2 Del Method Room Air 08/19/25 08:17 O2 Flow Rate 1 08/17/25 20:00 FiO2 30 08/13/25 14:00 Oxygen Flow Rate 2 08/11/25 11:39 BMI result Body Mass Index 32.2 Objective Data Active Medications Apixaban (Apixaban 5 Mg Tablet) 5 mg PO BID [facility] Last Admin: 08/19/25 08:20 Dose: 5 mg Documented By: CAMILO Artificial Tears (Artificial Tears 15 Ml Drops) 2 drop EYE-BOTH QID PRN PRN Reason: Dry Eyes Last Admin: 08/17/25 17:51 Dose: 2 drop Documented By: NIA Atorvastatin Calcium (Atorvastatin Calcium 80 Mg Tablet) 80 mg PO DAILY [facility] Last Admin: 08/19/25 08:20 Dose: 80 mg Documented By: CAMILO Folic Acid (Folic Acid 1 Mg Tablet) 1 mg PO DAILY [facility] Last Admin: 08/19/25 08:20 Dose: 1 mg Documented By: CAMILO Furosemide (Furosemide 40 Mg Tablet) 40 mg PO DAILY [facility]; Protocol Last Admin: 08/19/25 08:20 Dose: 40 mg Documented By: CAMILO Potassium Chloride (Potassium Chloride/H20) 10 meq in 100 mls @ 100 mls/hr IV Q1H [facility] Stop: 08/19/25 12:59 Last Admin: 08/19/25 09:09 Dose: 100 mls/hr Documented By: CAMIOL Thiamine HCl 400 mg/ Sodium (Chloride) 104 mls @ 208 mls/hr IV Q12H [facility] Losartan Potassium (Losartan Potassium 50 Mg Tablet) 100 mg PO DAILY [facility]; Protocol Last Admin: 08/19/25 08:20 Dose: 100 mg Documented By: CAMILO Metoprolol Succinate (Metoprolol Succinate Er 100 Mg Tab.Er.24h) 100 mg PO DAILY [facility]; Protocol Last Admin: 08/19/25 08:20 Dose: 100 mg Documented By: CAMILO Olanzapine (Olanzapine 2.5 Mg Tablet) 2.5 mg PO BEDTIME [facility] Last Admin: 08/18/25 21:38 Dose: 2.5 mg Documented By: JAMA Ondansetron HCl (Ondansetron Hcl 4 Mg/2 Ml Vial) 4 mg IVPUSH Q6H PRN PRN Reason: Nausea and Vomiting Last Admin: 08/13/25 15:09 Dose: 4 mg Documented By: SHAY Pharmacy Consult (Consult Rx Etoh Phenob Im/Po) 1 each MISCELLANE ONCE PRN; Protocol PRN Reason: Consult order Pharmacy Consult (Consult Rx Etoh Phenob Im/Po) 1 each MISCELLANE ONCE PRN; Protocol PRN Reason: Consult order Potassium Chloride (Potassium Chloride Er 20 Meq Tab.Er.Prt) 40 meq PO ONCE ONE Stop: 08/19/25 19:01 Sodium Chloride (0.9 % Sodium Chloride Flush 3 Ml Syringe) 3 ml IVFLUSH QSHIFT [facility] Last Admin: 08/19/25 08:18 Dose: 3 ml Documented By: CAMILO Labs 08/18/25 12:32 08/19/25 07:25 Labs: Laboratory Results - last 24 hr 08/18/25 08/19/25 12:32 07:25 MCV 93.9 MCH 30.9 MCHC 33.0 RDW 14.5 Plt Count 247 D MPV 10.3 Absolute Nucleated RBC 0.000 Nucleated RBC % (auto) 0.0 Anion Gap 13 15 Estim Creat Clear Calc 91.1 78.7 Estimated GFR > 60 > 60 Random Glucose 111 109 Calcium 9.3 9.2 Magnesium 1.9 1.8 Assessment and Plan (1) Seizure: Status: Acute (2) Afib: Status: Acute (3) Hypertension: Status: Acute (4) Alcohol withdrawal: Status: Acute Plan 85 Y M w/ hypertension, atrial fibrillation on apixaban, and alcohol misuse, presenting to ED on 08/11 w/ encephalopathy, upper extremity weakness, initially made code stroke, though CT H and CTA H/N not suggestive of intracranial pathology; in ED, patient w/ witnessed seizure, given midazolam, requiring intubation. Extubated 08/14/25 and transferred to medical floors for further medical management for alcohol withdrawal seizures. 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, improving Acute hypoxic respiratory failure / seizure Intubated 08/11/2025 and extubated 08/14/2025 -Continue alcohol withdrawal protocol with phenobarbital -Fall precautions -Aspiration precautions -Continue IV thiamine and PO folic acid -delirium precautions -EEG ordered, pending results -neuro consulted, suggested on EEG AFib, chronic Will continue with metoprolol and Eliquis HTN -continue losartan 100mg qd and lasix, will adjust medications accordingly HLD -Continue atorvastatin 80mg Hypokalemia currently 2.8 -will initiate IV potassium 40 meq x 1 dose, will give 40 meq PO later tonight DVT prophylaxis with Eliquis Disposition: All questions and concerns with the patient were answered to satisfaction. All pertinent clinical documents, images and labs were reviewed. DISCLAIMER: This document was created using voice recognition software. Any mistakes in the prescription are unintentional. An attempt was made to focus for accuracy, but to expedite availability, some errors may persist. Please contact with any need for correction or further clarification Total time managing care of this patient today: 35 minutes. Quality Stroke Does the patient have a stroke diagnosis?: No VTE Prior VTE?: No VTE Risk Level:: Medical - moderate - high VTE Device Contraindication: N/A - Device Ordered VTE Drug Contraindication: N/A - Med Ordered
[2025-08-19 13:18] LABS: Hematocrit 44.9 % (42.0-52.0); Hemoglobin 15.2 g/dl (14.0-18.0); Mean Corpuscular HGB Conc 33.9 g/dl (31.0-36.0); Mean Corpuscular Hemoglobin 31.5 pg (27.0-33.0); Mean Corpuscular Volume 93.0 fL (80.0-98.0); NRBC Abs Auto 0.000 X10*3/uL (0.0-0.012); NRBC Pct Auto 0.0 /100WBC (0.0-0.2); Platelet Count 269 X10*3/uL (160-400); Red Blood Count 4.83 X10*6/uL (4.60-5.80); White Blood Count 10.7 X10*3/uL (4.8-10.8)
[2025-08-19 13:27] LABS: Appearance Urine Cloudy; Glucose Urine UA Negative (Negative); PH 6.5 (5.0-9.0); Specific Gravity - Urine 1.015 (1.005-1.025); UMIC TRIGGER UACC YES
[2025-08-19 13:32] LABS: UACC Culture Trigger YES
--- NOTE | 2025-08-19 13:34 | PC.NURSE ---
Pt c/o chills despite being covered in [address] Brunner made aware. CXR, Labs and UA ordered. order for straight cath obtained d/t pt's anatomy and being incontinent of urine. pt straight cathed for 600mls. specimen sent to lab.
--- NOTE | 2025-08-19 15:57 | PC.NURSE ---
Pt reports chills improved. temp rechecked for 102.4 Dr louis made aware. pt medicated with prn tylenol. resp panel obtained.
[2025-08-19] MEDS: Potassium Chloride Packet 20 MEQ PACKET 40 MEQ PO (18:35)
--- NOTE | 2025-08-20 01:34 | PC.NURSE ---
desat to 70% while asleep. awoke and improved to 95%. awoke to name, placed on 2L NC.
[2025-08-20 03:01] VITALS: BP 133/66; PULSE 89; RESP 20; TEMP 37.3; O2SAT 96
--- NOTE | 2025-08-20 06:27 | PC.NURSE ---
urinated 305 mL now. >450 mL post void residual volume. straight cathing now
[2025-08-20 07:28] LABS: Anion Gap 12 (12-20); Blood Urea Nitrogen 18 mg/dL (9-16); Calcium 9.0 mg/dL (8.4-10.2); Carbon Dioxide 30 mmol/L (22-29); Chloride 98 mmol/L (96-108); Creatinine Clr Calc Pharmacy 72.4; Estimated Glomerular Filt Rate > 60; Magnesium 1.9 mg/dL (1.6-2.6); Potassium 3.1 mmol/L (3.3-5.1); Sodium 137 mmol/L (135-145)
[2025-08-20 07:52] LABS: Chlamydia pneumoniae PCR Not Detected (Not Detect.); Coronavirus 229E PCR Not Detected (Not Detect.); Coronavirus HKU1 PCR Not Detected (Not Detect.); Coronavirus NL63 PCR Not Detected (Not Detect.); Coronavirus OC43 PCR Not Detected (Not Detect.); RSV PCR Not Detected (Not Detect.); Rhino/Enterovirus PCR Not Detected (Not Detect.)
[2025-08-20 07:54] LABS: Influenza A H1 PCR Not Detected (Not Detect.); Influenza A H1-2009 PCR Not Detected (Not Detect.); Influenza A H3 PCR Not Detected (Not Detect.); SARS-CoV-2 PCR Not Detected (Not Detect.)
[2025-08-20 08:00] VITALS: BP 134/80; PULSE 97; RESP 18; TEMP 37.3; O2SAT 94
[2025-08-20] MEDS: 0.9 % Sodium Chloride Flush 3 ML SYRINGE IVFLUSH (08:53)
[2025-08-20] MEDS: Metoprolol Succinate ER 100 MG TAB.ER.24H PO (08:53)
[2025-08-20] MEDS: Potassium Chloride Packet 20 MEQ PACKET 40 MEQ PO (10:19)
--- NOTE | 2025-08-20 10:26 | MHC.CM.PN ---
Per ROUNDS discussion, Patient is not yet medically cleared for dc (spiked a fever); PT is recommending STR and CM will continue to follow.
[2025-08-20] MEDS: Artificial Tears 15 ML DROPS 2 DROP EYE-BOTH ×2 (10:35→21:59)
[2025-08-20 12:00] VITALS: BP 150/75; PULSE 87; RESP 20; TEMP 36.5; O2SAT 96
--- NOTE | 2025-08-20 13:34 | MHC.SL.SWA ---
Speech Pathologist Impression: Mild-moderate oropharyngeal dysphagia Risk of Aspiration Due to: Dentition status, cognition/confusion Dysphasia Diet Status: Recommend CONTINUE current diet of NDD2, Thin liquids with direct supervision Liquid Consistency and Strategies for Safe Swallow: Liquid Intake Recommendation: Thin Liquid Intake Strategies: Small Sips No Straws Solid Food Consistency: Dietary Recommendations: Grnd/Mech Altered (NDD2) Additional Modifications to Solid Foods: Oral Medication Intake: Whole with Puree Please contact the pharmacy regarding appropriate crushable or liquid drug formulations that are available whenever modified delivery is recommended. Compensatory Strategies and Precautions to be Taken for Safe Swallow: Sitting Upright (90 deg) No Straw Liquids from Cup Small Bites and Sips Alternate Liquids/Solids Rate of Ingestion Change Supervision While Eating and Drinking for Safe Swallow: Direct Supervision (1:1) Foods to Avoid: tough, difficult to chew solids, too large pieces of food. Swallowing Recommended Treatments: Compens. Strategy Educat. Recommendation for Speech: Inpatient Speech Therapy Comment: Patient met in room during lunch for dysphagia tx. Patient seen feeding self with girlfriend at bedside providing supervision and cueing to modify feeding rate and bolus size. Patient utilizing straws despite COMMUNITY SERVICE TECHNICIAN recommendations of no straw communicated on whiteboard. Patient with immediate and delayed coughing on thin liquids via large, uncontrolled straw sips. Patient unable to reduce bolus size with liquids despite cueing. Patient tolerating thin liquids via small cup sips. Education over recommendations of no straws/reduce use of straws as increases risk of aspiration. Patient with timely mastication, reduced cohesion and clearance with ground solids. Noted delayed coughing throughout meal. Patient continues with impulsivity and confusion, not appropriate for upgrade at this time. Recommend CONTINUE with NDD2, Thin Liquids with direct supervision as patient requires cueing to ensure safety at meals. RN notified of COMMUNITY SERVICE TECHNICIAN recommendations. Patient and family in agreement with POC. Frequency/Duration: Date Range for Service Req: Timeline to reassess: Electric Motor Control Assembler Clinican/Clinical Fellow: No Supervisory Statement: I have reviewed and agree with the student/clinical fellow's documentation: N/A Speech Language Pathologist: Lou Camargo M.A., CCC-COMMUNITY SERVICE TECHNICIAN
--- NOTE | 2025-08-20 14:41 | P.PNADD_ITS ---
Subjective Subjective Date of Service: 08/20/25 Reason For Visit: encephalopathy Interim History: Patient seen in follow up for AUD, acute withdrawal and likely wernikes encephalopathy. Son, Hans, present during interview. He reports that he finds his father's mentation to be much improved from last week, although not still at baseline. No reports of AH. Discussed how AUD has likely contributed to clinical picture, including abrupt discontinuation and possible thiamine deficiency. Son, shared concern that patient may return to drinking once discharged from [facility]. Provided supportive listening and inquired about son's supports with regards to having a loved with AUD. Son open to receiving resources. Patient is awake, alert, pleasant. Playfully stating that he is ready to get out of here whenever we give him the okay. Appearing comfortable. Speech clear. Review of Systems Acute medical concerns: Yes Review of Systems Constitutional: Reports as per HPI and Reports no additional constitutional complaints Mental Status Exam Mental Status Exam Level of Consciousness: Awake and Alert Patient Behavior: Cooperative Affect Description: Calm Speech Pattern: Clear Thought Content: positive for [place] Judgement: Fair Diagnostics Vital Signs (24Hr): Vital Signs - 24 hr 08/19/25 16:00 08/19/25 17:02 08/19/25 17:08 Temperature 102.5 F H 100.8 F H Pulse Rate 98 Respiratory Rate 18 Blood Pressure 170/80 H 119/62 Pulse Oximetry 92 Oxygen Delivery Method Room Air Oxygen Flow Rate 08/19/25 19:19 08/19/25 22:30 08/19/25 22:43 Temperature 98.8 F 100.8 F H 99.5 F Pulse Rate 84 88 Respiratory Rate 18 20 Blood Pressure 122/81 138/72 Pulse Oximetry 93 92 Oxygen Delivery Method Room Air Room Air Oxygen Flow Rate 08/20/25 03:01 08/20/25 08:00 08/20/25 12:00 Temperature 99.2 F 99.1 F 97.7 F Pulse Rate 89 97 87 Respiratory Rate 20 18 20 Blood Pressure 133/66 134/80 150/75 H Pulse Oximetry 96 94 96 Oxygen Delivery Method Nasal Cannula Room Air Room Air Oxygen Flow Rate 2 BMI result Body Mass Index 32.2 Labs 08/19/25 13:05 08/20/25 07:03 Labs: Laboratory Results - last 48 hr 08/19/25 08/19/25 08/19/25 07:25 13:05 13:12 WBC 10.7 RBC 4.83 Hgb 15.2 Hct 44.9 MCV 93.0 MCH 31.5 MCHC 33.9 RDW 14.6 Plt Count 269 MPV 10.2 Absolute Nucleated RBC 0.000 Nucleated RBC % (auto) 0.0 Sodium 138 Potassium 2.8 L* Chloride 96 Carbon Dioxide 30 H Anion Gap 15 BUN 12 Creatinine 0.81 Estim Creat Clear Calc 78.7 Estimated GFR > 60 Random Glucose 109 Calcium 9.2 Magnesium 1.8 Urine Color Dark Yellow Urine Appearance Cloudy Urine pH 6.5 Ur Specific [place] 1.015 Urine Protein 30 (1+) H Urine Glucose (UA) Negative Urine Ketones Negative Urine Blood Small (1+) H Urine Nitrite Negative Ur Leukocyte Esterase Small (1+) H Urine RBC 11-20 H Urine WBC 21-50 H Ur Squamous Epith Cells 0-2 Urine Bacteria 4+ Hyaline Casts 0-2 Respiratory Panel Tsang Adenovirus (Rapid PCR) B.pert (TEM-PCR) B.parapertussis DNA PCR C. pneumoniae DNA (PCR) Coronavirus OC43 (PCR) Coronavirus HKU1 (PCR) Coronavirus 229E (PCR) Coronavirus NL63 (PCR) Human Metapneumovir PCR Influenza A (RT-PCR) Influenza A (H1) PCR Influ A (H1/09) PCR Influenza A (H3) PCR Influenza B (RT-PCR) M. pneumoniae (PCR) Parainfluenza 1 (PCR) Parainfluenza 2 (PCR) Parainfluenza 3 (PCR) Parainfluenza 4 (PCR) RSV (PCR) Entero/Rhino (PCR) SARS-CoV-2 RNA (RT-PCR) 08/19/25 08/20/25 15:55 07:03 WBC RBC Hgb Hct MCV MCH MCHC RDW Plt Count MPV Absolute Nucleated RBC Nucleated RBC % (auto) Sodium 137 Potassium 3.1 L Chloride 98 Carbon Dioxide 30 H Anion Gap 12 BUN 18 H Creatinine 0.88 Estim Creat Clear Calc 72.4 Estimated GFR > 60 Random Glucose 106 Calcium 9.0 Magnesium 1.9 Urine Color Urine Appearance Urine pH Ur Specific [place] Urine Protein Urine Glucose (UA) Urine Ketones Urine Blood Urine Nitrite Ur Leukocyte Esterase Urine RBC Urine WBC Ur Squamous Epith Cells Urine Bacteria Hyaline Casts Respiratory Panel Tsang See Note Adenovirus (Rapid PCR) Not Detected B.pert (TEM-PCR) Not Detected B.parapertussis DNA PCR Not Detected C. pneumoniae DNA (PCR) Not Detected Coronavirus OC43 (PCR) Not Detected Coronavirus HKU1 (PCR) Not Detected Coronavirus 229E (PCR) Not Detected Coronavirus NL63 (PCR) Not Detected Human Metapneumovir PCR Not Detected Influenza A (RT-PCR) Not Detected Influenza A (H1) PCR Not Detected Influ A (H1/) PCR Not Detected Influenza A (H3) PCR Not Detected Influenza B (RT-PCR) Not Detected M. pneumoniae (PCR) Not Detected Parainfluenza 1 (PCR) Not Detected Parainfluenza 2 (PCR) Not Detected Parainfluenza 3 (PCR) Not Detected Parainfluenza 4 (PCR) Not Detected RSV (PCR) Not Detected Entero/Rhino (PCR) Not Detected SARS-CoV-2 RNA (RT-PCR) Not Detected Medications Medications Current Medications Acetaminophen (Acetaminophen 325 Mg Tablet) 650 mg PO Q6H PRN PRN Reason: Pain, Mild 1-3,fever,headache Last Admin: 08/19/25 15:53 Dose: 650 mg Apixaban (Apixaban 5 Mg Tablet) 5 mg PO BID [facility] Last Admin: 08/20/25 08:53 Dose: 5 mg Artificial Tears (Artificial Tears 15 Ml Drops) 2 drop EYE-BOTH QID PRN PRN Reason: Dry Eyes Last Admin: 08/20/25 10:35 Dose: 2 drop Atorvastatin Calcium (Atorvastatin Calcium 80 Mg Tablet) 80 mg PO DAILY [facility] Last Admin: 08/20/25 08:53 Dose: 80 mg Folic Acid (Folic Acid 1 Mg Tablet) 1 mg PO DAILY [facility] Last Admin: 08/20/25 08:53 Dose: 1 mg Furosemide (Furosemide 40 Mg Tablet) 40 mg PO DAILY [facility]; Protocol Last Admin: 08/20/25 08:53 Dose: 40 mg Thiamine HCl 400 mg/ Sodium (Chloride) 104 mls @ 208 mls/hr IV Q12H [facility] Stop: 08/20/25 16:29 Last Infusion: 08/20/25 04:24 Dose: Infused Losartan Potassium (Losartan Potassium 50 Mg Tablet) 100 mg PO DAILY [facility]; Protocol Last Admin: 08/20/25 08:53 Dose: 100 mg Metoprolol Succinate (Metoprolol Succinate Er 100 Mg Tab.Er.24h) 100 mg PO DAILY [facility]; Protocol Last Admin: 08/20/25 08:53 Dose: 100 mg Olanzapine (Olanzapine 2.5 Mg Tablet) 2.5 mg PO BEDTIME [facility] Last Admin: 08/19/25 22:39 Dose: 2.5 mg Ondansetron HCl (Ondansetron Hcl 4 Mg/2 Ml Vial) 4 mg IVPUSH Q6H PRN PRN Reason: Nausea and Vomiting Last Admin: 08/13/25 15:09 Dose: 4 mg Pharmacy Consult (Consult Rx Etoh Phenob Im/Po) 1 each MISCELLANE ONCE PRN; Protocol PRN Reason: Consult order Pharmacy Consult (Consult Rx Etoh Phenob Im/Po) 1 each MISCELLANE ONCE PRN; Protocol PRN Reason: Consult order Sodium Chloride (0.9 % Sodium Chloride Flush 3 Ml Syringe) 3 ml IVFLUSH QSHIFT [facility] Last Admin: 08/20/25 08:53 Dose: 3 ml Allergies Allergies Allergy/AdvReac Type Severity Reaction Status Date / Time No Known Allergies Allergy Verified 08/11/25 11:48 Assessment & Plan Assessment & Plan (1) Alcohol use disorder, severe, dependence: Status: Acute Code(s): F10.20 - Alcohol dependence, uncomplicated Assessment and Plan: * withdrawal resolved * IV thiamine can decrease to 200mg BID then transition to PO at discharge---should continue upon discharge * resources to be provided to son Total time managing care of this patient today _35___ minutes.
--- NOTE | 2025-08-20 14:47 | P.PNIM_ITS ---
Subjective Subjective Date of Service: 08/20/25 Interval History: Patient seen examined at bedside this morning, patient yesterday had episode of fever, respiratory panel negative, UA was ordered, with prelim groing negative rods. Patient states that he is feeling well, denies any complaints. Review of Systems Review of Systems: Yes all other systems are reviewed and are negative Physical Exam 2 Exam: Exam: General: AxOx3, No acute distress Head: AT/NC ENT: Moist mucous membranes Neck: supple CVS; RRR, S1 S2 normal Lungs: Clear bilateral breath sounds, no wheezes or crackles Abd: Soft non tender, non distended Ext: No edema and no calf tenderness MSK: moving all 4 limbs Skin: No cyanosis or edema Psych: Cooperative with exam Neurology: no focal deficit Vital Signs: Vital Signs: Last Vital Signs Temp 97.7 F 08/20/25 12:00 Pulse 87 08/20/25 12:00 Resp 20 08/20/25 12:00 BP 150/75 H 08/20/25 12:00 Pulse Ox 96 08/20/25 12:00 O2 Del Method Room Air 08/20/25 12:00 O2 Flow Rate 2 08/20/25 03:01 FiO2 30 08/13/25 14:00 Oxygen Flow Rate 2 08/11/25 11:39 BMI result Body Mass Index 32.2 Objective Data Active Medications Acetaminophen (Acetaminophen 325 Mg Tablet) 650 mg PO Q6H PRN PRN Reason: Pain, Mild 1-3,fever,headache Last Admin: 08/19/25 15:53 Dose: 650 mg Apixaban (Apixaban 5 Mg Tablet) 5 mg PO BID [facility] Last Admin: 08/20/25 08:53 Dose: 5 mg Documented By: MITCH Artificial Tears (Artificial Tears 15 Ml Drops) 2 drop EYE-BOTH QID PRN PRN Reason: Dry Eyes Last Admin: 08/20/25 10:35 Dose: 2 drop Documented By: MITCH Atorvastatin Calcium (Atorvastatin Calcium 80 Mg Tablet) 80 mg PO DAILY [facility] Last Admin: 08/20/25 08:53 Dose: 80 mg Documented By: MITCH Folic Acid (Folic Acid 1 Mg Tablet) 1 mg PO DAILY [facility] Last Admin: 08/20/25 08:53 Dose: 1 mg Documented By: MITCH Furosemide (Furosemide 40 Mg Tablet) 40 mg PO DAILY [facility]; Protocol Last Admin: 08/20/25 08:53 Dose: 40 mg Documented By: MITCH Thiamine HCl 400 mg/ Sodium (Chloride) 104 mls @ 208 mls/hr IV Q12H [facility] Stop: 08/20/25 16:29 Last Infusion: 08/20/25 04:24 Dose: Infused Documented By: PRATIK Losartan Potassium (Losartan Potassium 50 Mg Tablet) 100 mg PO DAILY [facility]; Protocol Last Admin: 08/20/25 08:53 Dose: 100 mg Documented By: MITCH Metoprolol Succinate (Metoprolol Succinate Er 100 Mg Tab.Er.24h) 100 mg PO DAILY [facility]; Protocol Last Admin: 08/20/25 08:53 Dose: 100 mg Documented By: MITCH Olanzapine (Olanzapine 2.5 Mg Tablet) 2.5 mg PO BEDTIME [facility] Last Admin: 08/19/25 22:39 Dose: 2.5 mg Documented By: PRATIK Ondansetron HCl (Ondansetron Hcl 4 Mg/2 Ml Vial) 4 mg IVPUSH Q6H PRN PRN Reason: Nausea and Vomiting Last Admin: 08/13/25 15:09 Dose: 4 mg Documented By: SHAY Pharmacy Consult (Consult Rx Etoh Phenob Im/Po) 1 each MISCELLANE ONCE PRN; Protocol PRN Reason: Consult order Pharmacy Consult (Consult Rx Etoh Phenob Im/Po) 1 each MISCELLANE ONCE PRN; Protocol PRN Reason: Consult order Sodium Chloride (0.9 % Sodium Chloride Flush 3 Ml Syringe) 3 ml IVFLUSH QSHIFT [facility] Last Admin: 08/20/25 08:53 Dose: 3 ml Documented By: MITCH Labs 08/19/25 13:05 08/20/25 07:03 Labs: Laboratory Results - last 24 hr 08/19/25 08/20/25 15:55 07:03 Anion Gap 12 Estim Creat Clear Calc 72.4 Estimated GFR > 60 Random Glucose 106 Calcium 9.0 Magnesium 1.9 Respiratory Panel Tsang See Note Adenovirus (Rapid PCR) Not Detected B.pert (TEM-PCR) Not Detected B.parapertussis DNA PCR Not Detected C. pneumoniae DNA (PCR) Not Detected Coronavirus OC43 (PCR) Not Detected Coronavirus HKU1 (PCR) Not Detected Coronavirus 229E (PCR) Not Detected Coronavirus NL63 (PCR) Not Detected Human Metapneumovir PCR Not Detected Influenza A (RT-PCR) Not Detected Influenza A (H1) PCR Not Detected Influ A (H1/09) PCR Not Detected Influenza A (H3) PCR Not Detected Influenza B (RT-PCR) Not Detected M. pneumoniae (PCR) Not Detected Parainfluenza 1 (PCR) Not Detected Parainfluenza 2 (PCR) Not Detected Parainfluenza 3 (PCR) Not Detected Parainfluenza 4 (PCR) Not Detected RSV (PCR) Not Detected Entero/Rhino (PCR) Not Detected SARS-CoV-2 RNA (RT-PCR) Not Detected Microbiology Microbiology Results: Microbiology 08/19/25 Unknown Urine Culture - Preliminary Urine clean catch - Clean Catch Midstream Gram negative marissa Assessment and Plan (1) Afib: Status: Acute (2) UTI (urinary tract infection): Status: Acute Plan 85 Y M w/ hypertension, atrial fibrillation on apixaban, and alcohol misuse, presenting to ED on 08/11 w/ encephalopathy, upper extremity weakness, initially made code stroke, though CT H and CTA H/N not suggestive of intracranial pathology; in ED, patient w/ witnessed seizure, given midazolam, requiring intubation. Extubated 08/14/25 and transferred to medical floors for further medical management for alcohol withdrawal seizures. 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, improving Acute hypoxic respiratory failure 2/2 seizure Intubated 08/11/2025 and extubated 08/14/2025 -Continue alcohol withdrawal protocol with phenobarbital -Fall precautions -Aspiration precautions -Continue thiamine and folic acid supplements -delirium precautions -EEG with mild slowing, no evidence of seizures Possible UTI -Urine culture with gram negative rods -will initiate Bactrim BID x7 days, will await final culture w/ EoT on 08/27 AFib, chronic Will continue with metoprolol and Eliquis HTN -continue losartan 100mg qd and lasix, will adjust medications accordingly HLD -Continue atorvastatin 80mg Hypokalemia -will give PO potassium supplement DVT prophylaxis with Eliquis Disposition: All questions and concerns with the patient were answered to satisfaction. All pertinent clinical documents, images and labs were reviewed. DISCLAIMER: This document was created using voice recognition software. Any mistakes in the prescription are unintentional. An attempt was made to focus for accuracy, but to expedite availability, some errors may persist. Please contact with any need for correction or further clarification Total time managing care of this patient today: 35 minutes. Quality Stroke Does the patient have a stroke diagnosis?: No VTE Prior VTE?: No VTE Risk Level:: Medical - moderate - high VTE Device Contraindication: N/A - Device Ordered VTE Drug Contraindication: N/A - Med Ordered
[2025-08-20 15:52] VITALS: BP 147/69; PULSE 90; RESP 20; TEMP 37.1; O2SAT 95
[2025-08-20] MEDS: Sulfamethox/Trimeth 800/160 TABLET 1 TAB PO ×2 (16:05→21:59)
--- NOTE | 2025-08-20 17:11 | PC.NURSE ---
pt bladder scanned for 463 mL, is voiding, MD notified. Per MD no need to straight cath at this time
[2025-08-20 19:21] VITALS: BP 144/86; PULSE 101; RESP 18; TEMP 37; O2SAT 96
[2025-08-21] VITALS: BP 139/72; PULSE 94; RESP 18; TEMP 36.8; O2SAT 92
[2025-08-21] MEDS: 0.9 % Sodium Chloride Flush 3 ML SYRINGE IVFLUSH ×2 (00:12→08:26)
[2025-08-21 03:31] VITALS: BP 147/75; PULSE 83; RESP 18; TEMP 36.8; O2SAT 93
[2025-08-21 07:29] LABS: Blood Urea Nitrogen 18 mg/dL (9-16); Calcium 9.6 mg/dL (8.4-10.2); Creatinine Clr Calc Pharmacy 70.1; Estimated Glomerular Filt Rate > 60
[2025-08-21 07:39] VITALS: BP 137/77; PULSE 92; RESP 18; TEMP 36.4; O2SAT 94
[2025-08-21 07:41] LABS: Anion Gap 16 (12-20); Carbon Dioxide 30 mmol/L (22-29); Chloride 97 mmol/L (96-108); Potassium 3.9 mmol/L (3.3-5.1); Sodium 139 mmol/L (135-145)
[2025-08-21] MEDS: Sulfamethox/Trimeth 800/160 TABLET 1 TAB PO (08:26)
[2025-08-21] MEDS: Metoprolol Succinate ER 100 MG TAB.ER.24H PO (08:26)
[2025-08-21 11:01] VITALS: BP 128/67; PULSE 88; RESP 18; TEMP 36.8; O2SAT 94
--- NOTE | 2025-08-21 12:30 | MHC.CM.PN ---
Per Patient and Son, [facility] is the first choice but per their Liaison, they have no beds open today and anticipate 2 beds open tomorrow with at least 20 referrals before this Patient. Patient's second choice is [facility] and CM awaits a response from that SNF.
--- NOTE | 2025-08-21 12:38 | P.DS_ITS ---
DS: Providers Provider Date of Service: 08/21/25 Date of admission: 08/11/25 15:45 Date of discharge: 08/21/25 Primary care physician: Lorene Avila CNP Consults: 08/15/25 16:23 Addiction Medicine Provider Routine Consulting Provider: Addiction Covering Reason for consultation: AUD 08/17/25 07:37 Consult to Neurology Routine Consulting Provider: [facility] Reason for consultation: encephalopathy possible wernicke Has provider been notified: No Attending physician on discharge: Jacob Nathan Discharging clinician: Jacob Nathan DS: Diagnosis Discharge Diagnosis (1) Alcohol use disorder, severe, dependence: Status: Acute (2) UTI (urinary tract infection): Status: Acute DS: Summary Hospital Course Hospital Course: 85 Y M w/ hypertension, atrial fibrillation on apixaban, and alcohol misuse, presenting to ED on 08/11 w/ encephalopathy, upper extremity weakness, initially made code stroke, though CT H and CTA H/N not suggestive of intracranial pathology, however did showed [id number] age-related cerebral hemispheric white matter ischemic changes; in ED, patient w/ witnessed seizure, given midazolam, requiring intubation. Extubated 08/14/25 and transferred to medical floors for further medical management for alcohol withdrawal seizures. patient improved with thiamine and supplements, recently developed fevers with UA showing possible UTI. placed on PO antibiotics. 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 UTI -Urine culture with gram negative rods -continue Bactrim BID x7 days, will await final culture w/ EoT on 08/27 AFib, chronic Will continue with metoprolol and Eliquis HTN -continue losartan 100mg qd and lasix, will adjust medications accordingly HLD -Continue atorvastatin 80mg Hypokalemia -will give PO potassium supplement Time Attestation Discharge Coordination Time (in mins): 35 minutes Quality: Safe Use of Opioids Does Pt have an Active Cancer Diagnosis on the Problem List?: No Quality: Stroke Does the patient have a stroke diagnosis?: No Physical Exam Exam: Exam: General: AxOx3, No acute distress Head: AT/NC ENT: Moist mucous membranes Neck: supple CVS; RRR, S1 S2 normal Lungs: Clear bilateral breath sounds, no wheezes or crackles Abd: Soft non tender, non distended Ext: No edema and no calf tenderness MSK: moving all 4 limbs Skin: No cyanosis or edema Psych: Cooperative with exam Neurology: no focal deficit Vital Signs: Vital Signs: Last Vital Signs Temp 98.3 F 08/21/25 11:01 Pulse 88 08/21/25 11:01 Resp 18 08/21/25 11:01 BP 128/67 08/21/25 11:01 Pulse Ox 94 08/21/25 11:01 O2 Del Method Room Air 08/21/25 11:01 O2 Flow Rate 2 08/20/25 03:01 FiO2 30 08/13/25 14:00 Oxygen Flow Rate 2 08/11/25 11:39 BMI result Body Mass Index 32.2 DS: Data Data Completed and Pending Labs on day of discharge: Laboratory Results - last 24 hr 08/21/25 06:14 Sodium 139 Potassium 3.9 D Chloride 97 Carbon Dioxide 30 H Anion Gap 16 BUN 18 H Creatinine 0.91 Estim Creat Clear Calc 70.1 Estimated GFR > 60 Random Glucose 94 Calcium 9.6 D Preliminary micro results at discharge 08/19/25 16:17 Blood Culture - Preliminary Blood - Venous No growth after 24 hours. 08/19/25 16:17 Blood Culture - Preliminary Blood - Venous No growth after 24 hours. Discharge Plan Discharge Anticipated Discharge Date/Time: 08/21/25 15:31 Patient Disposition: Xfer SNF Discharge Diagnosis: Alcohol use disorder encephalopathy Referrals: Lorene Avila CNP [Primary Care Provider, Internal Medicine] - 1 Week Discharge Medications: New sulfamethoxazole-trimethoprim 800-160 mg Tablet 1 tab PO BID 6 Days Qty: 12 0RF olanzapine 2.5 mg Tablet 2.5 mg PO BEDTIME 30 Days Qty: 30 0RF folic acid 1 mg Tablet 1 mg PO DAILY 30 Days Qty: 30 0RF Artificial Tears(cz-oshl-pfuc) 1-0.2-0.2 % Drops 2 drp ophthalmic (eye) QID PRN (Reason: Dry Eyes) 30 Days Qty: 10 0RF Continued furosemide 40 mg tablet 40 mg PO DAILY metoprolol succinate 100 mg tablet extended release 24 hr 100 mg PO DAILY rosuvastatin 40 mg tablet 40 mg PO QPM Eliquis 5 mg tablet 5 mg PO BID Changed losartan 50 mg tablet 100 mg PO DAILY 30 Days Qty: 60 0RF Discharge Orders: Discharge Order (Routine); Ordered 08/21/25 Ordered By: Jacob Nathan Activity on Discharge: As tolerated Stand Alone Forms: Patient Portal Discharge page Print Language: Wolof Care Plan Goals: counselling given on alcohol cessation continue with vitamins PT/OT Health Concerns: alcohol use disorder withdrawal seizure uncontrolled htn Urinary tract infection Plan of Treatment: continue blood pressure medications continue bactrim with EoT on 08/27 Assessment: 85 Y M w/ hypertension, atrial fibrillation on apixaban, and alcohol misuse, presenting to ED on 08/11 w/ encephalopathy, upper extremity weakness, initially made code stroke, though CT H and CTA H/N not suggestive of intracranial pathology; in ED, patient w/ witnessed seizure, given midazolam, requiring intubation. Extubated 08/14/25 and transferred to medical floors for further medical management for alcohol withdrawal seizures. patient improved with thiamine and supplements, recently developed fevers with UA showing possible UTI. placed on PO antibiotics. Patient Instructions: Abuse of Alcohol (DC), Alcohol Use Disorder (DC)
--- NOTE | 2025-08-21 14:07 | MHC.CM.PN ---
Patient has been medically cleared for dc to SNF/STR today. Patient and family have accepted a private room bed offer from [facility] and he will dc there today @ 3:30 PM, via [facility].IMM was addressed with Patient and Son/HCP/Antoine.
[2025-08-21 15:22] VITALS: BP 151/75; PULSE 84; RESP 18; TEMP 36.7; O2SAT 97
== END 2025-08-21 16:41 | disposition skilled nursing facility (03) | DRG 896 ==
LOC: HO.ED 15:18 → HO.EDOVER 15:51 → HO.ICU 15:56 → HO.IMC 08-14 13:00 → HO.ICU 08-14 13:01 → HO.IMC 08-14 13:56
PROVIDERS: Internal Medicine Pulmonary Disease; Nurse Practitioner Family; Student in an Organized Health Care Education/Training Program; Admitting Provider Internal Medicine Critical Care Medicine; Emergency Provider Emergency Medicine Emergency Medical Services; PCP Nurse Practitioner Acute Care; Visit Provider Student in an Organized Health Care Education/Training Program
DX: F10.239 Alcohol dependence with withdrawal, unspecified (principal); J96.01 Acute respiratory failure with hypoxia; E51.2 Wernicke's encephalopathy; I48.20 Chronic atrial fibrillation, unspecified; N39.0 Urinary tract infection, site not specified; Z66 Do not resuscitate; E78.5 Hyperlipidemia, unspecified; E87.6 Hypokalemia; I95.2 Hypotension due to drugs; T42.75XA Adverse effect of unspecified antiepileptic and sedative-hypnotic drugs, initial encounter; R31.9 Hematuria, unspecified; G31.9 Degenerative disease of nervous system, unspecified; I65.23 Occlusion and stenosis of bilateral carotid arteries; R56.9 Unspecified convulsions; Z20.822 Contact with and (suspected) exposure to COVID-19; Z87.891 Personal history of nicotine dependence; Z79.01 Long term (current) use of anticoagulants; Z79.899 Other long term (current) drug therapy
CPT/HCPCS: 36415; 36600; 70450; 70496; 70498; 71045; 80048; 80061; 80307; 81001; 82040; 82140; 82607; 82746; 82803; 82947; 83735; 84100; 84484; 85025; 85027; 85610; 85730; 87040; 87086; 87088; 87186; 87633; 87637; 92526; 92610; 93005; 94003; 95819; 97162; 97166; 97530; 97535; 99285; J0330; J1920; J1953; J2250; J2405; J2470; J2560; J2704; J3010; J3411; J3480; P9047; Q9967

== ENCOUNTER → 2025-08-11 11:21 | Outpatient (BNV) | payer MEDICARE, OTHER, SELFPAY | PROVIDERS: Admitting Provider Internal Medicine Critical Care Medicine; Emergency Provider Emergency Medicine Emergency Medical Services; PCP Internal Medicine; Visit Provider Internal Medicine | DX: I48.91 Unspecified atrial fibrillation (principal) | CPT/HCPCS: 93010 ==

== ENCOUNTER → 2025-08-11 11:21 | Outpatient (BNV) | payer MEDICARE, OTHER, SELFPAY | PROVIDERS: Emergency Provider Emergency Medicine Emergency Medical Services; Visit Provider Radiology Diagnostic Radiology | DX: I65.23 Occlusion and stenosis of bilateral carotid arteries (principal); J90 Pleural effusion, not elsewhere classified; I63.9 Cerebral infarction, unspecified; R09.89 Other specified symptoms and signs involving the circulatory and respiratory systems; Z46.59 Encounter for fitting and adjustment of other gastrointestinal appliance and device | CPT/HCPCS: 71045 ==

== ENCOUNTER 2025-08-11 15:45 | Outpatient (BNV) | payer MEDICARE, OTHER, SELFPAY | END 2025-08-17 14:30 | PROVIDERS: Admitting Provider Internal Medicine Critical Care Medicine; Emergency Provider Emergency Medicine Emergency Medical Services; PCP Nurse Practitioner Acute Care; Visit Provider Psychiatry & Neurology Neurology | DX: R56.9 Unspecified convulsions (principal) | CPT/HCPCS: 95819 ==

== ENCOUNTER 2025-08-11 15:45 | Outpatient (BNV) | payer MEDICARE, OTHER, SELFPAY | END 2025-08-12 17:41 | PROVIDERS: Admitting Provider Internal Medicine Critical Care Medicine; Emergency Provider Emergency Medicine Emergency Medical Services; PCP Nurse Practitioner Acute Care; Visit Provider Internal Medicine Cardiovascular Disease | DX: I48.91 Unspecified atrial fibrillation (principal) | CPT/HCPCS: 93010 ==

== ENCOUNTER → 2025-08-11 15:45 | Outpatient (BNV) | payer MEDICARE, OTHER, SELFPAY | PROVIDERS: Admitting Provider Internal Medicine Critical Care Medicine; Emergency Provider Emergency Medicine Emergency Medical Services; PCP Internal Medicine; Visit Provider Internal Medicine Pulmonary Disease | DX: I48.91 Unspecified atrial fibrillation (principal); R56.9 Unspecified convulsions; F10.939 Alcohol use, unspecified with withdrawal, unspecified | CPT/HCPCS: 99291 ==

== ENCOUNTER → 2025-08-11 15:45 | Outpatient (BNV) | payer MEDICARE, OTHER, SELFPAY | PROVIDERS: Admitting Provider Internal Medicine Critical Care Medicine; Emergency Provider Emergency Medicine Emergency Medical Services; PCP Nurse Practitioner Acute Care; Visit Provider Student in an Organized Health Care Education/Training Program | DX: J96.01 Acute respiratory failure with hypoxia (principal); J96.02 Acute respiratory failure with hypercapnia | CPT/HCPCS: 99232; 99233; 99499 ==

== ENCOUNTER → 2025-08-11 15:45 | Outpatient (BNV) | payer MEDICARE, OTHER, SELFPAY | PROVIDERS: Admitting Provider Internal Medicine Critical Care Medicine; Emergency Provider Emergency Medicine Emergency Medical Services; PCP Nurse Practitioner Acute Care; Visit Provider Nurse Practitioner Psychiatric/Mental Health | DX: F10.939 Alcohol use, unspecified with withdrawal, unspecified (principal) | CPT/HCPCS: 99222 ==

== ENCOUNTER → 2025-08-11 15:45 | Outpatient (BNV) | payer MEDICARE, OTHER, SELFPAY | PROVIDERS: Admitting Provider Internal Medicine Critical Care Medicine; Emergency Provider Emergency Medicine Emergency Medical Services; PCP Internal Medicine; Visit Provider Internal Medicine Critical Care Medicine | DX: J96.01 Acute respiratory failure with hypoxia (principal); J96.02 Acute respiratory failure with hypercapnia; R56.9 Unspecified convulsions | CPT/HCPCS: 99223; 99291 ==

== ENCOUNTER → 2025-08-11 15:45 | Outpatient (BNV) | payer MEDICARE, OTHER, SELFPAY | PROVIDERS: Admitting Provider Internal Medicine Critical Care Medicine; Emergency Provider Emergency Medicine Emergency Medical Services; PCP Nurse Practitioner Acute Care; Visit Provider Psychiatry & Neurology Neurology | DX: R56.9 Unspecified convulsions (principal) | CPT/HCPCS: 99222 ==